=== PATIENT | female | born 1945 | race Caucasian/White ===

== ENCOUNTER 2020-07-21 11:27 | Outpatient (REF) | payer MEDICARE, MEDICAID, SELFPAY ==
--- NOTE | 2020-07-22 08:25 | MHC.AU.P13 ---
Adult Audiological Evaluation Date of Visit: 07/21/20 Anodiser Used: Reason for Appointment: Audiologic evaluation due to increasing difficulties hearing and understanding speech. Does patient feel they have a hearing loss?: Yes If Yes, Which Ear?: Both Ears Has hearing been tested previously?: No Hearing Handicap Inventory HHIE SCORE: 20 Based on HHIE score, patient has: Mild to moderate perceived hearing handicap Ear History: History of occupational noise exposure?: Yes Medical History: Medical History: Cancer Diabetes High Blood Pressure Moderate Dementia Otoscopy: Right Ear: Unremarkable Left Ear: Unremarkable Tympanometry: Right Ear: Normal Middle Ear System (Type A) Left Ear: Normal Middle Ear System (Type A) Otoacoustic Emissions: Frequency Range Used: 1.6-8 kHz Right Ear Results: Absent Emissions Analysis: Reduced/Absent emissions suggest cochlear dysfunction Left Ear Results: Absent Emissions Analysis: Reduced/Absent emissions suggest cochlear dysfunction Hearing Evaluation: Transducer(s) Used: Insert Earphones Bone Conduction Method: Conventional Audiometry Stimuli Used: Pure Tones Right Ear: Description of Hearing: Borderline normal hearing thresholds from 250-1000 Hz, sloping to a moderately-severe sensorineural hearing loss Left Ear: Description of Hearing: Mild sloping to moderately-severe sensorineural hearing loss Speech Recognition Threshold (SRT): Method Used: Monitored Live Voice Stimuli Used: Spondee Words Right Ear: 30 Left Ear: 30 Word Discrimination: Method: Monitored Live Voice Word Lists Used: Lista Bisil?bica (Croatian) Right Ear: 92% at a listening level of 70 dB HL Left Ear: 96% at a listening level of 70 dB HL Recommendations: Recommendations: Audiological re-evaluation in one year. Trial with amplification is recommended. Medical clearance from a physician is required before fitting. Hearing Aid Fitting will be scheduled when all materials arrive. Hearing aid(s) will be ordered after approval is received. Diagnosis: Primary Diagnosis: H90.3 Bilateral Sensorineural Hearing Loss Services Performed: Services Performed: Comprehensive Audiological Evaluation (CPT 15693) Diagnostic Otoacoustic Emissions (CPT 11444, 26+TC) Tympanometry (CPT 85090) Signature: Provider: Santos Fuentes, [facility]
--- NOTE | 2020-07-22 08:42 | MHC.AU.P13 ---
Hearing Aid Evaluation- Binaural Date of Visit: 07/21/20 Description of Hearing: Borderline normal/mild low frequency, sloping to moderately-severe high frequency sensorineural hearing loss bilaterally Summary: Discussed with grandson options and pros/cons between using a Pocket Talker vs. binaural hearing aids related to patient's dementia. Grandson feels patient will keep the hearing aids in the ears and there is constant family support, so hearing aids will be trialed Hearing Instrument Selection: Right Ear: Alto Singer: Phonak Model: Virto M [id number] in-the-ear Battery Size: 312 Color: Berg Left Ear: Alto Singer: Phonak Model: Virto M [id number] in-the-ear Battery Size: 312 Color: Berg Recommendations: Recommendations: Fitting will be scheduled when all materials have arrived. Prior authorization will be sent to patient's insurance. A signed medical clearance form is required from a physician. Recommendations: Call family to schedule Hearing Aid Fitting when aids are received. Mirta-Daughter(needs Propulsion Generator Repairer) [phone] Dre - Grandson [phone] Diagnosis Code(s): Primary Diagnosis: H90.3 Bilateral Sensorineural Hearing Loss Services Performed: Hearing Aid Evaluation and Earmold: Hearing Aid Evaluation- Binaural Signature: Provider: Santos Fuentes, CCC-A
== END 2020-07-21 11:28 | disposition home or self-care (01) ==
LOC: HO.SH 11:27
PROVIDERS: PCP Family Medicine; Visit Provider Family Medicine
DX: H90.3 Sensorineural hearing loss, bilateral (principal)
CPT/HCPCS: 92557; 92567; 92588; 92591

== ENCOUNTER 2020-08-05 11:35 | Outpatient (REF) | payer MEDICARE, MEDICAID, SELFPAY ==
--- NOTE | 2020-08-05 11:39 | MM_ITS ---
EXAMINATION: MM SCREENING DIGITAL BREAST TOMOSYNTHESIS, BILATERAL CLINICAL INFORMATION: Screening. Asymptomatic. COMPARISON: Mammography: October 18, 2018 and studies dating back to September 20, 2012 TECHNIQUE: Digital breast tomosynthesis is performed in both the craniocaudal and mediolateral oblique views along with computer-aided detection (CAD). Synthesized 2D images are generated from the tomosynthesis. Additional left exaggerated craniocaudal view performed. FINDINGS: There are scattered areas of fibroglandular density (ACR BI-RADS breast composition Category b). Stable postsurgical changes seen about the left breast. No new abnormal dominant mass or suspicious grouping of microcalcifications seen with either right or left breast. MM/MM tomosynthesis screening BI IMPRESSION: There are no significant changes from prior study. ASSESSMENT: BI-RADS 2: Benign RECOMMENDATION: Routine annual mammography screening. This patient's information was entered into a reminder system with a target due date for their next mammogram.
== END 2020-08-05 11:36 | disposition home or self-care (01) ==
LOC: HO.MAMMO 11:35
PROVIDERS: PCP Family Medicine; Visit Provider Family Medicine
DX: Z12.31 Encounter for screening mammogram for malignant neoplasm of breast (principal)
CPT/HCPCS: 77063; 77067

== ENCOUNTER 2020-11-03 10:10 | Outpatient (REF) | payer MEDICARE, MEDICAID, SELFPAY | END 2020-11-03 10:11 | disposition home or self-care (01) | LOC: HO.HAP 10:10 | PROVIDERS: Visit Provider Family Medicine | DX: Z46.1 Encounter for fitting and adjustment of hearing aid (principal); H90.3 Sensorineural hearing loss, bilateral | CPT/HCPCS: 92595; V5011; V5020; V5160; V5259; V5266 ==

== ENCOUNTER 2020-11-18 07:52 | Outpatient (REF) | payer MEDICARE, MEDICAID, SELFPAY ==
--- NOTE | ~2020-11-18 | XR_ITS ---
EXAMINATION: XR BILATERAL KNEES XR RIGHT KNEE CLINICAL INFORMATION: Pain. COMPARISON: None. TECHNIQUE: Bilateral knees 1 view. Right knee 3 views. FINDINGS: Right knee: Moderate medial compartment arthritis. There is joint space loss. Yrxm-mb-deqfzpml lateral compartment and mild patellofemoral arthritis. No fracture or dislocation. No effusion. Left knee: Ahsi-on-qrijziuj medial compartment arthritis. XR/XR knee RT 2V IMPRESSION: Tricompartment arthritis right knee. Moderate medial compartment arthritis.
--- NOTE | ~2020-11-18 | XR_ITS ---
EXAMINATION: XR BILATERAL KNEES XR RIGHT KNEE CLINICAL INFORMATION: Pain. COMPARISON: None. TECHNIQUE: Bilateral knees 1 view. Right knee 3 views. FINDINGS: Right knee: Moderate medial compartment arthritis. There is joint space loss. Gdtw-wj-eyoyppry lateral compartment and mild patellofemoral arthritis. No fracture or dislocation. No effusion. Left knee: Pwtz-sw-mbzledtx medial compartment arthritis. XR/XR knee standing BI IMPRESSION: Tricompartment arthritis right knee. Moderate medial compartment arthritis.
== END 2020-11-18 07:53 | disposition home or self-care (01) ==
LOC: HO.HOSX 07:52
PROVIDERS: Visit Provider Orthopaedic Surgery
DX: M25.561 Pain in right knee (principal)
CPT/HCPCS: 73560; 73565; J1100

== ENCOUNTER 2020-11-18 10:10 | Outpatient (REF) | payer MEDICARE, MEDICAID, SELFPAY | END 2020-11-18 10:11 | disposition home or self-care (01) | LOC: HO.HAP 10:10 | PROVIDERS: Visit Provider Family Medicine | DX: Z46.1 Encounter for fitting and adjustment of hearing aid (principal); M17.0 Bilateral primary osteoarthritis of knee; E11.65 Type 2 diabetes mellitus with hyperglycemia; H90.3 Sensorineural hearing loss, bilateral | CPT/HCPCS: 20610; 99202 ==

== ENCOUNTER 2020-12-06 12:46 | Outpatient (REF) | payer MEDICARE, MEDICAID, SELFPAY | END 2020-12-06 12:47 | disposition home or self-care (01) | LOC: HO.HAP 12:46 | PROVIDERS: Visit Provider Family Medicine | DX: Z13.89 Encounter for screening for other disorder (principal) ==

== ENCOUNTER 2023-04-09 19:49 | Emergency (ER) | payer MEDICARE, SELFPAY ==
--- NOTE | 2023-04-09 | ECG_ITS ---
Test Reason : WEAKNESS Blood Pressure : / mmHG Vent. Rate : 074 BPM Atrial Rate : 074 BPM P-R Int : 152 ms QRS Dur : 092 ms QT Int : 406 ms P-R-T Axes : 052 -09 054 degrees QTc Int : 450 ms Normal sinus rhythm Normal ECG When compared with ECG of 02-AUG-2019 18:14, No significant change was found Referred By: Magi Yuen Electronically Signed By:Randall Wright
--- NOTE | ~2023-04-09 | CT_ITS ---
EXAMINATION: CT HEAD WITHOUT CONTRAST CLINICAL INFORMATION: Sudden onset weakness and altered mental status. COMPARISON: CT brain dated 08/02/2019. TECHNIQUE: Contiguous axial imaging was performed from the skull base to vertex without intravenous administration of contrast. This CT examination was performed using dose optimization techniques as appropriate, variously including the following: *Automated exposure control *Adjustment of mA and/or kV according to patient size (this includes techniques or standardized protocols for targeted exams where dose is matched to indication/reason for exam; i.e. extremities or head) *Use of iterative reconstruction technique DLP: 651 mGy-cm FINDINGS: There is no intracranial hemorrhage, hematoma, or extra-axial fluid collection. The ventricles are normal in size. There is no hydrocephalus, edema, or mass effect. The canales-white matter differentiation appears symmetric. There is no acute infarct or mass lesion. There is minimal patchy low attenuation change in the periventricular white matter spaces. The calvarium appears intact. There is no pneumocephalus or orbital emphysema. The visualized sinuses and middle ears and mastoid air cells are well aerated. There is mild bilateral maxillary and sphenoid chamber sinusitis. There are no air-fluid levels. CT/CT head/brain wo IV con IMPRESSION: 1. No acute intracranial pathology. 2. There is minimal patchy low attenuation change in appearance to white matter spaces, commonly associated with chronic microangiopathy. 3. There is mild paranasal sinusitis.
--- NOTE | ~2023-04-09 | XR_ITS ---
EXAMINATION: XR CHEST CLINICAL INFORMATION: Weakness. COMPARISON: None available. TECHNIQUE: Frontal view of the chest was obtained. FINDINGS: The lungs are well-expanded and clear. The heart size and pulmonary vascularity is normal. There are surgical trista in the left lateral chest wall and overlying left supraclavicular and suprasternal region. No gross bony abnormality seen. XR/XR chest 1V IMPRESSION: Unremarkable chest exam.
[2023-04-09 20:00] VITALS: BP 120/62; BP 156/76; PULSE 74; PULSE 76; RESP 16; TEMP 37.2; O2SAT 93; O2SAT 97; BMI 23.8
[2023-04-09 20:25] LABS: Glucose, Whole Blood 254 mg/dL (60-115)
--- NOTE | 2023-04-09 20:37 | ED_ITS ---
HPI - Weakness General Chief complaint: Weakness Stated complaint: general weakness, per ems Time Seen by Provider: 04/09/23 19:55 Source: family Mode of arrival: ambulatory Limitations: language barrier (Serbian-speaking medical data entry clerk utilized) History of Present Illness HPI Narrative: Patient is a 78-year-old female who presents emergency department with daughter via EMS for evaluation. Patient with altered mental status at baseline secondary to Alzheimer's. Minimally conversive per daughter's report. She has recently moved here from [place] on 03/30/2023. Patient's daughter reports that she was sitting in a chair when she noticed the patient's base to become flushed/red. She assisted the patient to walk to the bathroom, she ambulates with assistance at baseline, she walks slowly. Patient took her medications as normal from daughter. Reportedly patient stated ?I do not feel well? and th erefore daughter contacted EMS for transport to the emergency department. Daughter reports that she has otherwise been at normal mentation prior. And does not expressed any recent concerns. Related Data Home Medications Medication Instructions Recorded Confirmed acetaminophen 500 mg tablet 500 mg PO Q6H PRN pain 11/18/20 aspirin 81 mg tablet,delayed 81 mg PO DAILY 11/18/20 release atorvastatin 80 mg tablet 80 mg PO DAILY 11/18/20 bupropion HCl 75 mg tablet 75 mg PO DAILY 11/18/20 cholecalciferol (vitamin D3) 25 25 mcg PO DAILY 11/18/20 mcg (1,000 unit) capsule fluoxetine 40 mg capsule mg PO 11/18/20 gabapentin 300 mg capsule 600 mg PO BEDTIME 11/18/20 memantine 10 mg tablet 10 mg PO BID 11/18/20 memantine 5 mg tablet 5 mg PO BID 11/18/20 metformin 500 mg tablet 500 mg PO BID 11/18/20 quetiapine 25 mg tablet mg PO 11/18/20 vit C 250 mg-vit E 90 mg-zinc 40 1 cap PO BID 11/18/20 mg-copper 1 vs-xjrmat-gwecme capsule vitamins A,C,O-anju-vwzobw 4,296 1 cap PO BID 11/18/20 mcg-226 mg-90 mg capsule (PreserVision AREDS) Allergies Allergy/AdvReac Type Severity Reaction Status Date / Time No Known Allergies Allergy Verified 11/18/20 12:40 Review of Systems Review of Systems: Yes Unobtainable due to mental status [facility] Past Medical History Attestation statement: The following information was validated with the patient. Source: old records reviewed Medical History Depression Diabetes type 2, uncontrolled DJD (degenerative joint disease) Dyslipidemia GERD (gastroesophageal reflux disease) Hypertension Osteoporosis Tubular adenoma Surgical History History of breast surgery Hx of thyroidectomy Family History Family History (Updated 12/23/20 @ 15:00 by Kriss Vargas [facility]) Father Kidney disease Social History Social History (Updated 11/18/20 @ 12:45 by Elba Hayes [facility]) Alcohol intake: never Advance Directives: No Advance Directives Information Provided: Yes Physical Exam Vital Signs: Vital Signs: Last Vital Signs Temp 98.9 F 04/09/23 20:00 Pulse 74 04/09/23 20:00 Resp 16 04/09/23 20:00 BP 156/76 H 04/09/23 20:00 Pulse Ox 97 04/09/23 20:00 O2 Del Method Room Air 04/09/23 20:00 BMI result Body Mass Index 23.8 Appearance: Alert.. No acute distress.? Eyes: Pupils equal, round and reactive to light.? ENT: Pharynx normal.?? Neck: Normal inspection.? Neck supple.?? CVS: Heart sounds normal. Normal heart rate and rhythm.? Pulses normal.?? Respiratory: No respiratory distress.? Lung sounds clear to auscultation bilaterally?? Abdomen: Soft and non-tender. Normoactive bowel sounds. No pulsatile mass.?? Skin: Skin warm and dry.? Normal skin color.? Extremities: No lower extremity edema.? Neuro: Moves all extremities spontaneously. No focal neuro deficits. Course Reevaluation(s) Reevaluation #1: CBC reveals no leukocytosis, a normocytic anemia not meeting any transfusion criteria. CMP is overall unremarkable, elevated glucose and a diabetic. Tropon in 13.7, EKG revealing normal sinus rhythm without acute ischemic finding, unlikely ACS. Chest x-ray is without acute cardiopulmonary process. CT of the head is without acute intracranial process. Pending urinalysis at this time, nursing staff made aware. Time: 23:06 Reevaluation #2: Urinalysis is without evidence of infection. I reviewed all findings with patient's daughter. At this time patient's daughter reports that she is at her baseline, she was offered physician observation in the emergency department tonight in case management/physical therapy evaluation in the morning for generalized weakness, daughter however declines. At this time she is comfortable with plan for discharge home. Reviewed worrisome signs and symptoms that would warrant re-evaluation in the emergency department. All questions answered. Time: 01:35 Medical Decision Making Medical Decision Making [facility] Narrative: Patient is a 78-year-old female with past medical history of Alzheimer's, diabetes, hypertension, hyperlipidemia, osteoporosis, depression, CKD stage IIIB, mitral regurgitation, tricuspid regurgitation presenting to the emergency department with daughter for evaluation of generalized weakness/unwell feeling as per HPI. Patient has baseline altered mental status secondary to Alzheimer's unable to obtain any significant history or appropriate ROS from patient. Physical examination is overall benign. Will obtain CBC to evaluate for leukocytosis/ anemia, CMP and lipase to evaluate for abnormal electrolytes /abnormal renal function/ abnormal hepatic/biliary function, EKG and troponin to evaluate for ischemia/ACS. Chest x-ray to evaluate for consolidation/ infiltrate/ mass/ pulmonary congestion and Urinalysis. Lab Data [facility] Lab Attestation statement: I reviewed the patient's lab results. (As per course narrative) 04/09/23 21:25 04/09/23 21:25 Labs: Lab Results 04/09/23 04/09/23 04/09/23 Range/Units 20:14 21:25 21:25 WBC 10.0 (4.8-10.8) X10*3/uL RBC 3.73 L (4.20-5.50) X10*6/uL Hgb 11.2 L (12.0-16.0) g/dl Hct 33.8 L (37.0-47.0) % MCV 90.6 (80.0-98.0) fL MCH 30.0 (27.0-33.0) pg MCHC 33.1 (31.0-35.0) g/dl RDW 13.2 (11.0-16.0) % Plt Count 200 (160-400) X10*3/uL MPV 9.7 (9.4-12.3) fL Immature Gran % (Auto) 0.3 (0.0-0.4) % Neut % (Auto) 52.4 (45-73) % Lymph % (Auto) 33.4 (20-40) % Harrison % (Auto) 6.6 (2-11) % Eos % (Auto) 6.7 H (0-4) % Baso % (Auto) 0.6 (0-2) % Lymph # (Auto) 3.3 (1.2-4.9) X10*3/uL Harrison # (Auto) 0.7 (0.1-1.2) X10*3/uL Eos # (Auto) 0.7 H (0.0-0.4) X10*3/uL Baso # (Auto) 0.1 (0.0-0.2) X10*3/uL Abs Immat Gran (auto) 0.03 (0.00-0.03) X10*3/uL Absolute Neuts (auto) 5.2 (2.0-8.3) x10*3/uL Absolute Nucleated RBC 0.000 (0.0-0.012) X10*3/uL Nucleated RBC % (auto) 0.0 (0.0-0.2) /100WBC PT (10.0-13.1) SEC INR (0.9-1.1) Sodium 140 (135-145) mmol/L Potassium 3.7 (3.3-5.1) mmol/L Chloride 107 (96-108) mmol/L Carbon Dioxide 25 (22-29) mmol/L Anion Gap 12 (12-20) BUN 16 (9-16) mg/dL Creatinine 0.99 (0.5-1.4) mg/dL Estim Creat Clear Calc 37.6 Estimated GFR 54 POC Glucose 254 H (60-115) mg/dL Random Glucose 190 H (60-115) mg/dL Calcium 9.0 (8.4-10.2) mg/dL Magnesium (1.6-2.6) mg/dL Total Bilirubin 0.3 (0.0-1.0) mg/dL AST 28 (5-31) U/L ALT 35 H (0-31) U/L Alkaline Phosphatase 69 (39-117) U/L Troponin I High Sens (<3.5-17.0) ng/L B-Natriuretic Peptide (<100) pg/mL Total Protein 6.3 L (6.5-8.0) g/dL Albumin 3.3 L (3.5-5.0) g/dL Lipase (8-78) U/L Urine Color Urine Appearance Urine pH (5.0-9.0) Ur Specific [place] (1.005-1.025) Urine Protein (Neg-Trace) mg/dL Urine Glucose (UA) (Negative) mg/dL Urine Ketones (Negative) mg/dL Urine Blood (Negative) Urine Nitrite (Negative) Ur Leukocyte Esterase (Negative) COVID-19 ([facility]) (Negative) COVID-19 Clin Com 04/09/23 04/09/23 04/09/23 Range/Units 21:25 21:25 21:25 WBC (4.8-10.8) X10*3/uL RBC (4.20-5.50) X10*6/uL Hgb (12.0-16.0) g/dl Hct (37.0-47.0) % MCV (80.0-98.0) fL MCH (27.0-33.0) pg MCHC (31.0-35.0) g/dl RDW (11.0-16.0) % Plt Count (160-400) X10*3/uL MPV (9.4-12.3) fL Immature Gran % (Auto) (0.0-0.4) % Neut % (Auto) (45-73) % Lymph % (Auto) (20-40) % Harrison % (Auto) (2-11) % Eos % (Auto) (0-4) % Baso % (Auto) (0-2) % Lymph # (Auto) (1.2-4.9) X10*3/uL Harrison # (Auto) (0.1-1.2) X10*3/uL Eos # (Auto) (0.0-0.4) X10*3/uL Baso # (Auto) (0.0-0.2) X10*3/uL Abs Immat Gran (auto) (0.00-0.03) X10*3/uL Absolute Neuts (auto) (2.0-8.3) x10*3/uL Absolute Nucleated RBC (0.0-0.012) X10*3/uL Nucleated RBC % (auto) (0.0-0.2) /100WBC PT (10.0-13.1) SEC INR (0.9-1.1) Sodium (135-145) mmol/L Potassium (3.3-5.1) mmol/L Chloride (96-108) mmol/L Carbon Dioxide (22-29) mmol/L Anion Gap (12-20) BUN (9-16) mg/dL Creatinine (0.5-1.4) mg/dL Estim Creat Clear Calc Estimated GFR POC Glucose (60-115) mg/dL Random Glucose (60-115) mg/dL Calcium (8.4-10.2) mg/dL Magnesium (1.6-2.6) mg/dL Total Bilirubin (0.0-1.0) mg/dL AST (5-31) U/L ALT (0-31) U/L Alkaline Phosphatase (39-117) U/L Troponin I High Sens 13.7 (<3.5-17.0) ng/L B-Natriuretic Peptide 40 (<100) pg/mL Total Protein (6.5-8.0) g/dL Albumin (3.5-5.0) g/dL Lipase (8-78) U/L Urine Color Urine Appearance Urine pH (5.0-9.0) Ur Specific [place] (1.005-1.025) Urine Protein (Neg-Trace) mg/dL Urine Glucose (UA) (Negative) mg/dL Urine Ketones (Negative) mg/dL Urine Blood (Negative) Urine Nitrite (Negative) Ur Leukocyte Esterase (Negative) COVID-19 ([facility]) Negative (Negative) COVID-19 Clin Com See Note 04/09/23 04/09/23 04/10/23 Range/Units 21:25 21:26 01:20 WBC (4.8-10.8) X10*3/uL RBC (4.20-5.50) X10*6/uL Hgb (12.0-16.0) g/dl Hct (37.0-47.0) % MCV (80.0-98.0) fL MCH (27.0-33.0) pg MCHC (31.0-35.0) g/dl RDW (11.0-16.0) % Plt Count (160-400) X10*3/uL MPV (9.4-12.3) fL Immature Gran % (Auto) (0.0-0.4) % Neut % (Auto) (45-73) % Lymph % (Auto) (20-40) % Harrison % (Auto) (2-11) % Eos % (Auto) (0-4) % Baso % (Auto) (0-2) % Lymph # (Auto) (1.2-4.9) X10*3/uL Harrison # (Auto) (0.1-1.2) X10*3/uL Eos # (Auto) (0.0-0.4) X10*3/uL Baso # (Auto) (0.0-0.2) X10*3/uL Abs Immat Gran (auto) (0.00-0.03) X10*3/uL Absolute Neuts (auto) (2.0-8.3) x10*3/uL Absolute Nucleated RBC (0.0-0.012) X10*3/uL Nucleated RBC % (auto) (0.0-0.2) /100WBC PT 10.7 (10.0-13.1) SEC INR 0.9 (0.9-1.1) Sodium (135-145) mmol/L Potassium (3.3-5.1) mmol/L Chloride (96-108) mmol/L Carbon Dioxide (22-29) mmol/L Anion Gap (12-20) BUN (9-16) mg/dL Creatinine (0.5-1.4) mg/dL Estim Creat Clear Calc Estimated GFR POC Glucose (60-115) mg/dL Random Glucose (60-115) mg/dL Calcium (8.4-10.2) mg/dL Magnesium 1.9 (1.6-2.6) mg/dL Total Bilirubin (0.0-1.0) mg/dL AST (5-31) U/L ALT (0-31) U/L Alkaline Phosphatase (39-117) U/L Troponin I High Sens (<3.5-17.0) ng/L B-Natriuretic Peptide (<100) pg/mL Total Protein (6.5-8.0) g/dL Albumin (3.5-5.0) g/dL Lipase 23 (8-78) U/L Urine Color Yellow Urine Appearance Clear Urine pH 6.5 (5.0-9.0) Ur Specific [place] <= 1.005 (1.005-1.025) Urine Protein Negative (Neg-Trace) mg/dL Urine Glucose (UA) Negative (Negative) mg/dL Urine Ketones Negative (Negative) mg/dL Urine Blood Negative (Negative) Urine Nitrite Negative (Negative) Ur Leukocyte Esterase Negative (Negative) COVID-19 ([facility]) (Negative) COVID-19 Clin Com Independent Interpretation I performed an independent interpretation of an: EKG and Plain X-Ray (Have personally interpreted XR imaging and agree with radiologist impression, no pneumonia, pneumothorax, pulmonary congestion) Interpretation: Rate: 73 Rhythm:? Normal sinus rhythm [place]:? Normal Normal P waves.? Normal ULYSSES.?? Normal QRS complex.?? ST T wave :??No ST elevation, no ST depression, no T-wave inversion qTC: 450 prior studies:? July 2019 The study has been interpreted contemporaneously by me. Radiology Impression Discussion of test interpretation with radiology: I have reviewed the radiolog ist's reading. Radiologist Impression: XR/XR chest 1V IMPRESSION: Unremarkable chest exam CT/CT head/brain wo IV con IMPRESSION: ? 1. No acute intracranial pathology. ? 2. There is minimal patchy low attenuation change in appearance to white matter spaces, commonly associated with chronic microangiopathy. ? 3. There is mild paranasal sinusitis. Independent Historian Clinical information obtained from an independent historian. History obtained from or confirmed by: Other (Patient's daughter who provides history) Discharge Plan Discharge Clinical Impression: Weakness Patient Disposition: Home, Self-Care Instructions: Weakness (ED) Additional Instructions: You were offered to remain in the emergency department so that physical therapy evaluation could be obtained in the morning. However this service was declined. If you have any concerns about continued weakness, falls while at home you may return back to the emergency department for further evaluation. Please return back to the emergency department any new or worsening symptoms or concerns. Referrals: Physician,Unknown J [Primary Care Provider] - Print Language: Serbian
[2023-04-09 21:30] LABS: MANUAL DIFF FLAG NO
[2023-04-09 21:33] LABS: Basophils Absolute Auto 0.1 X10*3/uL (0.0-0.2); Basophils Percent Auto 0.6 % (0-2); Eosinophils Absolute Auto 0.7 X10*3/uL (0.0-0.4); Eosinophils Percent Auto 6.7 % (0-4); Hematocrit 33.8 % (37.0-47.0); Hemoglobin 11.2 g/dl (12.0-16.0); Imm Gran Abs Auto 0.03 X10*3/uL (0.00-0.03); Imm Gran Pct Auto 0.3 % (0.0-0.4); Lymphocytes Absolute Auto 3.3 X10*3/uL (1.2-4.9); Lymphocytes Percent Auto 33.4 % (20-40); Mean Corpuscular HGB Conc 33.1 g/dl (31.0-35.0); Mean Corpuscular Volume 90.6 fL (80.0-98.0); Mean Platelet Volume 9.7 fL (9.4-12.3); Monocytes Absolute Auto 0.7 X10*3/uL (0.1-1.2); Monocytes Percent Auto 6.6 % (2-11); Neutrophils Absolute Auto 5.2 x10*3/uL (2.0-8.3); Neutrophils Percent Auto 52.4 % (45-73); Platelet Count 200 X10*3/uL (160-400); Red Blood Count 3.73 X10*6/uL (4.20-5.50); Red Cell Distribution Width 13.2 % (11.0-16.0)
[2023-04-09 21:40] LABS: INTERNATIONAL NORM RATIO 0.9 (0.9-1.1); Prothrombin Time 10.7 SEC (10.0-13.1)
[2023-04-09 21:44] LABS: COVID-19 Test Negative (Negative); IDNOW Serial# 08D9AD1C
[2023-04-09 21:45] LABS: Lipase 23 U/L (8-78); Magnesium 1.9 mg/dL (1.6-2.6)
[2023-04-09 21:47] LABS: Alanine Aminotransferase 35 U/L (0-31); Albumin Level 3.3 g/dL (3.5-5.0); Alkaline Phosphatase 69 U/L (39-117); Anion Gap 12 (12-20); Aspartate Amino Transferase 28 U/L (5-31); Bilirubin Total 0.3 mg/dL (0.0-1.0); Blood Urea Nitrogen 16 mg/dL (9-16); Carbon Dioxide 25 mmol/L (22-29); Chloride 107 mmol/L (96-108); Creatinine Clr Calc Pharmacy 37.6; Estimated Glomerular Filt Rate 54; Glucose Random 190 mg/dL (60-115); Potassium 3.7 mmol/L (3.3-5.1); Sodium 140 mmol/L (135-145); Total Protein 6.3 g/dL (6.5-8.0)
[2023-04-09 21:53] LABS: Troponin-I High Sensitivity 13.7 ng/L (<3.5-17.0)
[2023-04-09 21:55] LABS: B Type Natriuretic Peptide 40 pg/mL (<100)
[2023-04-10 01:28] LABS: Appearance Urine Clear; Color Urine Yellow; Glucose Urine UA Negative (Negative); Leukocyte Esterase Urine Negative (Negative); Nitrite Urine Negative (Negative); PH 6.5 (5.0-9.0); Specific Gravity - Urine <= 1.005 (1.005-1.025); Urine Blood Negative (Negative); Urine Ketones Negative (Negative); Urine Protein Negative (Neg-Trace)
--- NOTE | 2023-04-10 02:18 | PC.NURSE ---
pt oob with 2 assist to the wheelchair, no pain observed
== END 2023-04-10 02:19 | disposition home or self-care (01) ==
PROVIDERS: Nurse Practitioner Family; Emergency Provider Student in an Organized Health Care Education/Training Program
DX: R53.1 Weakness (principal); Z20.822 Contact with and (suspected) exposure to COVID-19; E11.22 Type 2 diabetes mellitus with diabetic chronic kidney disease; I12.9 Hypertensive chronic kidney disease with stage 1 through stage 4 chronic kidney disease, or unspecified chronic kidney disease; N18.32 Chronic kidney disease, stage 3b; D64.9 Anemia, unspecified; G30.9 Alzheimer's disease, unspecified; F02.80 Dementia in other diseases classified elsewhere, unspecified severity, without behavioral disturbance, psychotic disturbance, mood disturbance, and anxiety; E78.5 Hyperlipidemia, unspecified; Z79.899 Other long term (current) drug therapy; Z79.82 Long term (current) use of aspirin; Z79.84 Long term (current) use of oral hypoglycemic drugs
CPT/HCPCS: 36415; 51798; 70450; 71045; 80053; 81003; 82947; 83690; 83735; 83880; 84484; 85025; 85610; 87635; 93005; 99284; 99285

== ENCOUNTER → 2023-04-09 19:59 | Outpatient (BNV) | payer MEDICARE, SELFPAY | PROVIDERS: Emergency Provider Student in an Organized Health Care Education/Training Program; Visit Provider Internal Medicine Cardiovascular Disease | DX: R53.1 Weakness (principal) | CPT/HCPCS: 93010 ==

== ENCOUNTER 2023-06-11 10:17 | Outpatient (REF) | payer MEDICARE, MEDICAID, SELFPAY ==
[2023-06-11 12:47] LABS: Creatinine Urine 173.32 mg/dL; Microalbum/Creatinine Ratio Ur 32.8 ug/mg cr (<30)
[2023-06-11 13:35] LABS: Alanine Aminotransferase 36 U/L (0-31); Albumin Level 3.7 g/dL (3.5-5.0); Alkaline Phosphatase 79 U/L (39-117); Anion Gap 13 (12-20); Aspartate Amino Transferase 25 U/L (5-31); Bilirubin Direct 0.2 mg/dL (0.0-0.5); Bilirubin Total 0.5 mg/dL (0.0-1.0); Blood Urea Nitrogen 16 mg/dL (9-16); Calcium 9.7 mg/dL (8.4-10.2); Carbon Dioxide 23 mmol/L (22-29); Chloride 105 mmol/L (96-108); Cholesterol 163 mg/dL (<200); Estimated Glomerular Filt Rate 35; Glucose Random 362 mg/dL (60-115); HDL Cholesterol 58 mg/dL (>40); LDL Cholesterol Calculated 79 mg/dL (<100); Potassium 4.4 mmol/L (3.3-5.1); Sodium 137 mmol/L (135-145); Total Protein 7.1 g/dL (6.5-8.0); Triglycerides 133 mg/dL (<150)
[2023-06-12 05:14] LABS: HIV AB/AG Nonreactive (Nonreactive); HIV Num 1 0.06 S/CO (0.00-0.99); ~HepC Num1 0.07 S/CO (0.00-0.79); ~Hepatitis C Antibody Nonreactive (Nonreactive)
[2023-06-16 11:52] LABS: VITAMIN D (1,25 OH) D3 26 pg/mL; Vit D (1,25-Dihydroxy) Total 26 pg/mL (18-72); Vitamin D (1,25 OH) D2 <8 pg/mL
== END 2023-06-11 10:18 | disposition home or self-care (01) ==
LOC: HO.HHCL 10:17
PROVIDERS: Visit Provider Family Medicine
DX: Z11.4 Encounter for screening for human immunodeficiency virus [HIV] (principal); Z11.59 Encounter for screening for other viral diseases; E11.29 Type 2 diabetes mellitus with other diabetic kidney complication; R80.9 Proteinuria, unspecified; E78.5 Hyperlipidemia, unspecified; I10 Essential (primary) hypertension; E55.9 Vitamin D deficiency, unspecified; Z79.4 Long term (current) use of insulin
CPT/HCPCS: 36415; 80048; 80061; 80076; 82043; 82570; 82652; 86803; 87389

== ENCOUNTER 2023-09-13 17:40 | Outpatient (REF) | payer MEDICARE, SELFPAY ==
[2023-09-14 21:18] LABS: C. trachomatis RNA TMA NOT DETECTED (NOT DETECTED); Candida glabrata RNA NOT DETECTED (NOT DETECTED); Candida species RNA DETECTED (NOT DETECTED); N. gonorrhoeae RNA TMA NOT DETECTED (NOT DETECTED); Trichomonas vaginalis RNA NOT DETECTED (NOT DETECTED)
== END 2023-09-13 17:41 | disposition home or self-care (01) ==
LOC: HO.LNP 17:40
PROVIDERS: Visit Provider Family Medicine
DX: R39.9 Unspecified symptoms and signs involving the genitourinary system (principal); B37.31 Acute candidiasis of vulva and vagina
CPT/HCPCS: 81513; 87086; 87481; 87491; 87591; 87661

== ENCOUNTER 2023-12-19 10:43 | Outpatient (AMB) | payer MEDICARE, SELFPAY ==
--- NOTE | 2023-12-19 10:51 | A.OFFVIS_ITS ---
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 Intake Note: New patient dx palpitations Child Development Instructor Name: patient has davina daughter Architecture Consultant: Architecture Consultant Present Accompanied by: Daughter Allergies No Known Allergies Allergy (Verified 11/18/20 12:40) Medication List - Last Reconciled 12/19/23 by Sean Marrero MD acetaminophen 500 mg PO Q6H PRN atorvastatin 80 mg PO DAILY bupropion HCl 75 mg PO DAILY cholecalciferol (vitamin D3) 25 mcg PO DAILY fluoxetine mg PO gabapentin 600 mg PO BEDTIME lisinopril 2.5 mg PO DAILY memantine 10 mg PO BID memantine 5 mg PO BID metformin 500 mg PO BID quetiapine mg PO vit C,Y-Lm-lxzue-lutein-zeaxan 250-90-40-1 mg 1 cap PO BID vitamins A,C,S-wpve-ogcrfz 4,296 mcg-226 mg-90 mg (PreserVision AREDS) 1 cap PO BID HPI HPI Comments History of Present Illness Details Chantal was referred here for symptoms of palpitations. She presents here with 2 daughters. Patient has significantly advanced cognitive dysfunction dementia. Not able to offer much history her symptoms. They do not have any records from [place]. She had symptoms of palpitations in [place] although details of these are not available and as to the diagnosis. However she is on Cardizem therapy for the same. She was referred here for further evaluation of palpitation although I can not obtain any history from the patient and there is no obvious symptoms of palpitations. However as per 1 of the daughters when patient stands up she complains of lightheadedness and chest discomfort. She has not had any syncopal episodes. Usually they keep a 24 hour watch on the patient. There are no other clear symptoms of heart failure reported. No blood pressure records at home. [facility] Medical History GERD (gastroesophageal reflux disease) Diabetes type 2, uncontrolled Osteoporosis Depression Tubular adenoma DJD (degenerative joint disease) Dyslipidemia Hypertension Surgical History Hx of thyroidectomy History of breast surgery Family History Father Kidney disease Social History Alcohol intake: never Review of Systems Const Unobtainable due to mental status Denies chills, Denies daytime sleepiness, Denies fatigue, Denies fever(s), Denies frequent falls, Denies poor appetite, Denies snoring, Denies stops breathing during sleep, Denies weakness, Denies weight gain and Denies weight loss Eyes Denies loss of vision ENT Denies dizziness and Denies hearing loss Card Denies chest pain, Denies claudication, Denies leg edema, Denies lightheadedness, Denies palpitations, Denies dyspnea, Denies dyspnea on exertion and Denies orthopnea Resp Denies cough, Denies excessive phlegm production, Denies dyspnea, Denies dyspnea on exertion, Denies snoring and Denies wheezing GI Denies abdominal pain, Denies hematochezia, Denies change in bowel habits, Denies nausea and Denies vomiting Denies urinary frequency and Denies dysuria Musc Denies arthralgias, Denies muscle weakness, Denies numbness and Denies other (frequent falls) Skin/Breast Denies nail changes and Denies rash Neuro Denies Abnormal speech present, Reports confusion, Denies dizziness, Denies frequent falls, Denies loss of vision, Denies memory loss, Denies numbness and Denies weakness Psych Reports confusion, Denies depression and Denies memory loss Endo Denies fatigue and Denies palpitations Ezra/Lymph Reports easy bruising and Reports other (anemia) Aller/Immun Denies wheezing Physical Exam Vital Signs: Last Vital Signs Pulse 81 12/19/23 10:58 BP 110/70 12/19/23 10:58 BMI result Body Mass Index 24.2 Const General: cooperative, comfortable, alert, awake and confusion Nutritional Appearance: average body habitus Orientation/consciousness: confusion Limitations: no limitations HEENT Head: Yes normocephalic and Yes atraumatic Neck Neck: Yes trachea midline, Yes supple and Yes no JVD Resp Effort & Inspection: normal respiratory effort Auscultation: clear to auscultation bilaterally Cardio Jugular venous distension: no JVD Palpation: normal PMI Rate: regular rate Rhythm: regular rhythm Heart sounds: S1 normal heart sound present, S2 normal heart sound present, no click, no gallops, no murmurs and no rubs GI Auscultation: normal bowel sounds Skin General skin exam: no rashes or lesions noted Neuro General: no focal motor deficits and confusion Speech: No Abnormal speech present Extrem General: Yes no clubbing, cyanosis or edema Office Procedures EKG Details: EKG shows poor baseline otherwise normal sinus rhythm with poor R-wave progression most likely lead placement [id number], Complete Assessment & Plan Assessment & Plan (1) Lightheadedness: Code(s): R42 - Dizziness and giddiness Plan: Patient with symptoms of lightheadedness and orthostatic positions when she gets up suddenly. 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 We discussed about orthostatic hypotension low blood pressure symptoms associated with it and associated risk of especially passing out and falling and hurting the patient. This was discussed in details. At this point time a blood pressure shows mild orthostasis from supine to sitting position. I have advised to stop lisinopril therapy. Advised to increase fluid intake. Orthostatic precautions were discussed. Given her significant cognitive dysfunction, this may pose a challenge. This was discussed with both patient's daughters. Given her advanced cognitive dysfunction, no further workup is indicated at this point in time. This was discussed with them. She does have high risk for underlying cardiovascular disease especially coronary artery disease given her longstanding diabetes. However management would be conservative. Consider low-dose aspirin therapy. Will follow up in the clinic if need be. Thank you for allowing me to partake in her care Coding Level of Care Code New Pt Level 4 (29444) Diagnoses Lightheadedness R42 CPT Codes EKG - CPT: 30964-[id number], Complete ([id number])
[2023-12-19 10:58] VITALS: BP 110/70; PULSE 81; BMI 24.2
== END 2023-12-19 11:48 | disposition home or self-care (01) ==
PROVIDERS: PCP Family Medicine; Visit Provider Internal Medicine Cardiovascular Disease
DX: R42 Dizziness and giddiness (principal)
CPT/HCPCS: 93010; 99204

== ENCOUNTER → 2023-12-19 10:43 | Outpatient (BNVA) | payer MEDICARE, SELFPAY | PROVIDERS: PCP Family Medicine; Visit Provider Internal Medicine Cardiovascular Disease | DX: R00.2 Palpitations (principal); R42 Dizziness and giddiness; F03.90 Unspecified dementia, unspecified severity, without behavioral disturbance, psychotic disturbance, mood disturbance, and anxiety | CPT/HCPCS: 93005; 99202 ==

== ENCOUNTER 2024-05-19 09:16 | Outpatient (REF) | payer MEDICARE, SELFPAY ==
[2024-05-19 11:59] LABS: Appearance Urine Clear; Color Urine Yellow; Glucose Urine UA >=1000 mg/dL (Negative); Leukocyte Esterase Urine Negative (Negative); Nitrite Urine Negative (Negative); Specific Gravity - Urine 1.025 (1.005-1.025); UMIC TRIGGER UACC YES; Urine Blood Negative (Negative); Urine Ketones Negative (Negative); Urine Protein Negative (Neg-Trace)
[2024-05-19 12:04] LABS: Bacteria Urine None Seen (None Seen); Hyaline Casts Urine 0-2 /LPF (0-2); RBC Urine 0-2 /HPF (0-2); Squamous Epithelial Cell Urine 0-2 /HPF (0-2); WBC Urine 0-5 /HPF (0-5)
[2024-05-19 12:14] LABS: Estimated Average Glucose 151 mg/dL; Hemoglobin A1c % 6.9 % (<6.0)
[2024-05-19 12:18] LABS: Alanine Aminotransferase 22 U/L (0-31); Albumin Level 4.2 g/dL (3.5-5.0); Alkaline Phosphatase 83 U/L (39-117); Anion Gap 12 (12-20); Aspartate Amino Transferase 19 U/L (5-31); Bilirubin Direct 0.1 mg/dL (0.0-0.5); Bilirubin Total 0.3 mg/dL (0.0-1.0); Blood Urea Nitrogen 14 mg/dL (9-16); Calcium 9.7 mg/dL (8.4-10.2); Carbon Dioxide 24 mmol/L (22-29); Chloride 109 mmol/L (96-108); Cholesterol 286 mg/dL (<200); Estimated Glomerular Filt Rate 32; Glucose Random 102 mg/dL (60-115); HDL Cholesterol 51 mg/dL (>40); LDL Cholesterol Calculated 184 mg/dL (<100); Potassium 4.4 mmol/L (3.3-5.1); Sodium 141 mmol/L (135-145); Total Protein 7.9 g/dL (6.5-8.0); Triglycerides 257 mg/dL (<150)
[2024-05-19 12:23] LABS: Creatinine Urine 122.62 mg/dL; Microalbum/Creatinine Ratio Ur 20.3 ug/mg cr (<30)
== END 2024-05-19 09:17 | disposition home or self-care (01) ==
LOC: HO.HHCL 09:16
PROVIDERS: Family Medicine; Visit Provider Internal Medicine
DX: E11.65 Type 2 diabetes mellitus with hyperglycemia (principal); R35.0 Frequency of micturition
CPT/HCPCS: 36415; 80048; 80061; 80076; 81001; 81003; 82043; 82570; 83036; 87086

== ENCOUNTER 2025-02-10 08:49 | Outpatient (REF) | payer MEDICARE, SELFPAY ==
--- OUTSIDE RECORDS SUMMARY | 2025-02-10 09:07 | XMS_ITS | Encounter Summary ---
Author Organization [employer] Address [address] [facility] 7[address] [place] [address] Care Team Providers Care Composition Professor Name Role Phone Roxy Flood MD Primary Care Provider [phone]- [phone] Encounter Details Date Type Department Care Team (Late st Contact Info) Description 08/11/2024 Orders Only [facility] [address] [place] [address] Roxy Flood MD [address] [place] [address] Dementia without behavioral disturbance (CMS/HCC) (Primary Dx) Social History Tobacco Use Types Packs/Day Years Used Date Smoking Tobacco: Never Smokeless Tobacco: Never Alcohol Use Standard Drinks/Week Comments Defer 0 (1 standard drink = 0.6 oz pur e alcohol) Alcohol Answer Date Recorded Frequency of Alcohol Consumption Not on file 08/04/2024 Average Number of Drinks Not on file 024 Frequency of Binge Drinking Not on file 07/25 Score 0 08/04/2024 Depression Answer Date Recorded Patient Health Questionnaire-9 Score 3 05/21/2024 Patient Health Questionnaire-9 Score 3 05/21/2024 Last PHQ-9: Questionnaire Data Not on file 0 05/21/2024 Housing Stability Answer Date Recorded What is your housing situation today? I have rosalinda bond 07/24/[address] you li ve. Do you have problems with any of the following? None of the above 07/24/2024 Food Insecurity Answer Date Recorded Within the past 12 months, y ou worried that your food would run out before you got money to buy more: Never True 07/24/2024 Within the past 12 months,th e food you bought just didn't last and you didn't have enough money to get more: Never True Transportation Answer Date Recorded In the past 12 months, has l ack of transportation kept you from medical appts, meetings, work or from getting things needed for daily living? No 07/24/2024 Utilities Answer Date Recorded In the past 12 months, has t he electric, gas, oil or water company threatened to shut off services in your home? No 07/24/2024 Depression Answer Date Recorded Patient Health Questionnaire-2 Score 2 05/21/2024 Internet Access Answer Date Recorded Internet Access Q1 No 07/24/2024 Internet Access Q2 I do not want or need it 06/26 Comments Unknown Sex and Gender Information Value Date Recorded Sex Assigned at Female 07/24/2022 10:18 AM EDT Legal Sex Female 10:18 AM EDT Gender Identity Female 07/24/2022 10:18 AM EDT Sexual Orientation Straight 07/24/2022 10 :18 AM EDT documented as of this encounter Plan of Treatment Upcoming Encounters Date Type Department Care Team (Late st Contact Info) Description 03/16/2025 11:15 AM EDT Telemedicine [facility] [address] [place] [phone] Roxy Flood MD [address] [place] [address] documented as of this encounter Goals Goal Patient Goal Type Associated Problems Recent Progress Patient-Stated? Author Blood Pressure < 150/90 Blood Pressure 140/78(2023 11:37 AM EST) No Mickey Amaya Hemoglobin A1c < 8 Result Component 6.9( 9:26 AM EDT) No Mickey Amaya documented as of this encounter Visit Diagnoses Diagnosis Dementia without behavioral disturbance (CMS/HCC)- Primary documented in this encounter Additional Health Concerns Assessment Noted Time PHQ-9 Depression Total Score: 3 05/21/20 24 10:39 AM EDT documented as of this encounter Care Teams Composition Professor Relationship Specialty Start Date End Date [place], MD Roxy [address] [place] [id number] PCP - General Family Medicine 03/21/23 Cj Harp NP [facility] 10/07/24 [place] [address] 11/04/24 documented as of this encounter
--- OUTSIDE RECORDS SUMMARY | 2025-02-10 09:08 | XMS_ITS | Encounter Summary ---
Author Organization [employer] Address [address] [facility] 7t [place] [address] Care Team Providers Care Director Content Marketing Name Role Phone Davison, Roxy LUEVANO Primary Care Provider [phone]- [phone] Reason for Visit * Reason Comments Med Refill Encounter Details Date Type Department Care Team (Late st Contact Info) Description 10/16/[address] [facility] [address] [place] [address] Candi Otoole FNP [address] [place] [address] Alzheimer's dementia of other onset, unspecified dementia severity, unspecified whether behavioral, psychotic, or mood disturbance or anxiety (CMS/FORMERLY [facility]) Social History Tobacco Use Types Packs/Day Years Used Date Smoking Tobacco: Never Smokeless Tobacco: Never Depression Answer Date Recorded Patient Health Questionnaire-9 Score 11 06/11/2023 Housing Stability Answer Date Recorded What is your housing situation today? I am not s ure 07/11/[address] you li ve. Do you have problems with any of the following? None of the above 07/11/2023 Food Insecurity Answer Date Recorded Within the past 12 months, y ou worried that your food would run out before you got money to buy more: Never True 07/11/2023 Within the past 12 months,th e food you bought just didn't last and you didn't have enough money to get more: Never True Transportation Answer Date Recorded In the past 12 months, has l ack of transportation kept you from medical appts, meetings, work or from getting things needed for daily living? Yes, it has kept me from non-medical meetings, work, or getting things that I need 07/03/2023 Utilities Answer Date Recorded In the past 12 months, has t he electric, gas, oil or water company threatened to shut off services in your home? No 07/11/2023 Depression Answer Date Recorded Patient Health Questionnaire-2 Score 4 06/11/2023 Comments Unknown Sex and Gender Information Value Date Recorded Sex Assigned at Female 07/24/2022 10:18 AM EDT Legal Sex Female 10:18 AM EDT Gender Identity Female 07/24/2022 10:18 AM EDT Sexual Orientation Straight 07/24/2022 10 :18 AM EDT documented as of this encounter Plan of Treatment Upcoming Encounters Date Type Department Care Team (Late st Contact Info) Description 03/16/2025 11:[address] [facility] [address] [place] [phone] Roxy Flood MD [address] [place] [id number] documented as of this encounter Goals Goal Patient Goal Type Associated Problems Recent Progress Patient-Stated? Author Blood Pressure < 150/90 Blood Pressure 140/78(2023 11:37 AM EST) No Mickey Amaya Hemoglobin A1c < 8 Result Component 6.9( 9:26 AM EDT) No Mickey Amaya documented as of this encounter Visit Diagnoses Diagnosis Alzheimer's dementia of other onset, unspecified dementia severity, unspecified whether behavioral, psychotic, or mood disturbance or anxiety (CMS/FORMERLY [facility]) documented in this encounter Additional Health Concerns Assessment Noted Time PHQ-9 Depression Total Score: 11 023 9:42 AM EDT documented as of this encounter Care Teams Director Content Marketing Relationship Specialty Start Date End Date Roxy Flood MD [address] [place] [phone] PCP - General Family Medicine 03/21/23 Cj Harp NP [facility] 10/07/24 Magi Raymond, RN [facility] ([address] [address] 11/04/24 documented as of this encounter
--- OUTSIDE RECORDS SUMMARY | 2025-02-10 09:08 | XMS_ITS | Encounter Summary ---
Author Organization [employer] Address [address] [place] [address] 7t [place] [address] Care Team Providers Care Commercial Lending Assistant Name Role Phone Roxy Flood MD Primary Care Provider +1- [phone] Encounter Details Date Type Department Care Team (Late st Contact Info) Description 04/25/2023 Abstract [facility] [address] [place] [phone] Roxy Flood MD [address] [place] [address] [phone] Social History Tobacco Use Types Packs/Day Years Used Date Smoking Tobacco: Never Assessed Comments Unknown Sex and Gender Information Value Date Recorded Sex Assigned at Female 07/24/2022 10:18 AM EDT Legal Sex Female 10:18 AM EDT Gender Identity Female 07/24/2022 10:18 AM EDT Sexual Orientation Straight 07/24/2022 10 :18 AM EDT documented as of this encounter Plan of Treatment Upcoming Encounters Date Type Department Care Team (Late st Contact Info) Description 03/16/2025 11:15 AM EDT Telemedicine [facility] [address] [place] [phone] Roxy Flood MD [address] [place] [address] [phone] documented as of this encounter Visit Diagnoses Not on filedocumented in this encounter Care Teams Commercial Lending Assistant Relationship Specialty Start Date End Date Roxy Flood MD [address] [place] [address] PCP - General Family Medicine 03/21/23 Cj Harp NP [facility] 10/07/24 Magi Raymond, RN [facility] ([address] [address] 11/04/24 documented as of this encounter
--- OUTSIDE RECORDS SUMMARY | 2025-02-10 09:08 | XMS_ITS | Encounter Summary ---
Author Organization [email or web address] Address [address] [facility] 7t [place] [address] Care Team Providers Care Filling Machine Set Up Mechanic Name Role Phone Roxy Flood MD Primary Care Provider +1- [phone] Reason for Visit * Reason Comments Med Refill Encounter Details Date Type Department Care Team (Late st Contact Info) Description 12/22/2024 Refill [facility] [address] [place] [address] Roxy Flood MD [address] [place] [address] Gastroesophageal reflux disease, unspecified whether esophagitis present Social History Tobacco Use Types Packs/Day Years [...] Info) Description 03/16/2025 11:15 AM EDT Telemedicine [facility] [address] [place] [address] Roxy Flood MD [address] [place] [address] documented as of this encounter Goals Goal Patient Goal Type Associated Problems Recent Progress Patient-Stated? Author Blood Pressure < 150/90 Blood Pressure 140/78(2023 11:37 AM EST) No Mickey Amaya Hemoglobin A1c < 8 Result Component 6.9( 9:26 AM EDT) No Mickey Amaya documented as of this encounter Visit Diagnoses Diagnosis Gastroesophageal reflux disease, unspecified whether esophagitis present documented in this encounter Additional Health Concerns Assessment Noted Time PHQ-9 Depression Total Score: 3 05/21/20 24 10:39 AM EDT documented as of this encounter Care Teams Filling Machine Set Up Mechanic Relationship Specialty Start Date End Date Roxy Flood MD [address] [place] [address] PCP - General Family Medicine 03/21/23 Cj Harp NP [facility] 10/07/24 Magi Raymond RN [facility] Caregiver [address] [address] 11/04/24 documented as of this encounter
--- OUTSIDE RECORDS SUMMARY | 2025-02-10 09:08 | XMS_ITS | Clinical Summary ---
Author Organization [employer] Address [address] [place] [address] [address] [place] [address] Care Team Providers Care Fundraising Officer Name Role Phone Roxy Flood MD Primary Care Provider [phone] Allergies No known active allergies Medications insulin glargine (Lantus SoloStar) 100 UNIT/ML penIndications:Unc ontrolled type 2 diabetes mellitus with hyperglycemia ([facility]) Inject 22 Units under the skin at bedtime. 15 mL 01/30/20 24 Active Alcohol Swabs (Alcohol Pads) 70 % padsIndications:Un controlled type 2 diabetes mellitus with hyperglycemia (CMS/HCC) Use as directed on skin 100 each 11 01/30/20 24 Active pen needle 32G x 6 mm miscIndications:Ty pe 2 diabetes mellitus with microalbuminuria, with long-term current use of insulin ([facility]) Use as instructed 100 each 03/14/20 24 025 Active memantine (Namenda) 10 MG tabletIndications: Alzheimer's dementia of other onset, unspecified dementia severity, unspecified whether behavioral, psychotic, or mood disturbance or anxiety (CMS/HCC) Take 1 tablet (10 mg) by mouth 2 times daily. 60 tablet 03/31/20 24 025 Active clotrimazole-betam ethasone (Lotrisone) lotionIndications: Intertrigo APPLY TO THE AFFECTED AREA(S) TWICE DAILY FOR 28 DAYS 30 mL 1 09/23/20 24 Active HealthyLax 17 g packetIndications: Constipation, unspecified constipation type Mix 1 packet in 8 ounces of water, juice, coffee or tea and drink once a day 30 packet 3 06/30/20 24 Active acetaminophen (Tylenol) 325 MG tabletIndications: Pain TAKE 1 TABLET BY MOUTH EVERY 8 HOURS NEEDED FOR MODERATE PAIN OR FOR FEVER 30 tablet 07/31/20 24 Active glucose blood test stripIndications:T ype 2 diabetes mellitus with stage 1 chronic kidney disease, without long-term current use of insulin ([facility]) ([facility]) Check bs bid dx diabetes 100 each 12 08/04/20 24 025 Active glucose blood (OneTouch Verio) test stripIndications:T ype 2 diabetes mellitus with stage 1 chronic kidney disease, without long-term current use of insulin ([facility]) ([facility]),Type 2 diabetes mellitus with microalbuminuria, with long-term current use of insulin ([facility]) TEST BLOOD SUGAR FOUR TIMES DAILY 120 each 11 08/04/20 24 Active FLUoxetine (PROzac) 40 MG capsuleIndications :Depressive disorder Take 1 capsule (40 mg) by mouth in the morning. 30 capsule 11 08/06/20 24 Active clonazePAM (KlonoPIN) 0.125 MG disintegrating tabletIndications: Dementia without behavioral disturbance ([facility]) Take 0.125 mg by mouth at bedtime. 08/07/20 24 Active Lancets (OneTouch Delica Plus [id number]) miscIndications:Un controlled type 2 diabetes mellitus with hyperglycemia ([facility]) USE DIRECTED TO TEST BLOOD SUGAR FOUR TIMES DAILY 100 each 5 10/09/19 25 Active nystatin (Mycostatin) creamIndications:C andidiasis Apply topically 2 times daily. 30 g 10/15/19 25 026 Active traZODone (Desyrel) 50 MG tablet 12/11/19 25 Active insulin aspart (NovoLOG FLEXPEN) 100 UNIT/ML penIndications:Typ e 2 diabetes mellitus with microalbuminuria, with long-term current use of insulin ([facility]) INJECT 4 UNITS SUBCUTANEOUSLY 10 MINUTES BEFORE LUNCH 15 mL 11 12/16/19 25 Active melatonin 3 MG tabletIndications: Dementia without behavioral disturbance ([facility]) Take 1 tab po at bedtime prn insomnia danish 90 tablet 3 12/23/19 Active omeprazole (PriLOSEC) [address] capsuleIndications :Gastroesophageal reflux disease, unspecified whether esophagitis present Take 1 capsule (40 mg) by mouth Once per day. 90 capsule 1 12/23/19 Active QUEtiapine (SEROquel) 25 MG tabletIndications: Severe Alzheimer's dementia with psychotic disturbance, unspecified timing of dementia onset ([facility]) TAKE 1 TABLET BY MOUTH EVERY EVENING (AT 4 IN THE AFTERNOON) and TAKE 1 TABLET BY MOUTH AT BEDTIME NEEDED AGITATION 60 tablet 2 01/03/20 Active Active Problems Patient Care Coordination No te Formatting of this note migh t be different from the original. Osvaldo social service coordinator [employer] [phone] Nurse [facility] Assistant Press Operator: Vivian, member services number [phone], provider services line, , option 4 Surgical Brace Maker Agency: [employer] [facility] Problem Noted Date Diagnosed Date Anemia 01/19/2025 Overview (01/19/2025): Lab Results Component Value Date HGB 11.8 08/02/2020 HGB 11.8 08/02/2020 HEMATOCRIT 36.5 08/02/2020 HEMATOCRIT 36.5 08/02/2020 -re-ordered labs 01/19/25 Assessment & Plan (01/19/2025 4:04 PM EDT): Lab Results Component Value Date HGB 11.8 08/02/2020 HGB 11.8 08/02/2020 HEMATOCRIT 36.5 08/02/2020 HEMATOCRIT 36.5 08/02/2020 -re-ordered labs 01/19/25 Candidiasis 10/15/2024 Overview (10/15/2024): Erythema on bilateral axilla, consistent with candidiasis. -prescribed nystatin (Mycostatin) cream 10/15/24 Assessment & Plan (10/15/2024 2:22 PM EST): Erythema on bilateral axilla, consistent with candidiasis. -prescribed nystatin (Mycostatin) cream 10/15/24 Episode of recurrent major d epressive disorder, unspecified depression episode severity 10/07/2024 Acute nasopharyngitis 07/31/2024 Assessment & Plan (07/31/2024 1:37 PM EST): Hydrate with plenty of water (avoid caffeine and alcohol), crystal lite lemonade, herbal teas. Use saline nose drops to loosen mucus + Flonase bid x 1w Take Acetaminophen (Tylenol??) as needed to reduce fever, headache, body aches or discomfort Start Z-pack ONLY if she continues with fever, worsening congestion or change in MS. I explained to the daughter that sxs are most likely related to viral URI and that they should be improving within 2-4d. Poor dentition 05/21/2024 Overview (08/04/2024): -referral placed to dentistry 05/21/24 - Referring to [facility] 08/04/24 Assessment & Plan (08/04/2024 1:34 PM EST): -referral placed to dentistry 05/21/24 - Referring to [facility] 08/04/24 Assessment & Plan (05/21/2024 11:36 AM EDT): -referral placed to dentistry 05/21/24 Intertrigo 05/16/2024 Urinary frequency 05/16/2024 Assessment & Plan (05/16/2024 3:46 PM EDT): In light of recent change in behaviors, patient was not able to provide sample at office I will order for lab UA and culture and I will treat empirically with bactrim Ingrown nail 11/26/2023 Overview (11/26/2023): -Referral made to Podiatry on 11/26/2023 Assessment & Plan (11/26/2023 12:14 PM EST): - Referral made to Podiatry on 11/26/2023 Difficulty sleeping 11/08/2023 Overview (11/26/2023): -Continue melatonin 2.5 mg once daily 11/08/23 Assessment & Plan (01/30/2024 11:37 AM EDT): -Continue melatonin 2.5 mg once daily 11/08/23 Assessment & Plan (11/26/2023 12:14 PM EST): -Continue melatonin 2.5 mg once daily 11/08/23 Assessment & Plan (11/08/2023 10:44 AM EST): -Start melatonin 2.5 mg once daily 11/08/23 Palpitations 10/10/2023 Overview (10/10/2023): Family olson she was diagnosed with an arhythmia in [place] and request cardiology referral. Referral to cardio done 10/10/23 Assessment & Plan (01/30/2024 11:38 AM EDT): Family whitney she was diagnosed with an arhythmia in [place] and request cardiology referral. Referral to cardio done 10/10/23 Assessment & Plan (11/26/2023 10:55 AM EST): Family olson she was diagnosed with an arhythmia in [place] and request cardiology referral. Referral to cardio done 10/10/23 Assessment & Plan (10/10/2023 10:36 AM EST): Family olson she was diagnosed with an arhythmia in [place] and request cardiology referral. Referral to cardio done 10/10/23 Class 1 obesity 10/03/2023 10/03/2023 Other specified health status 06/11/2023 Overview (08/05/2024): -next annual evaluation due after 08/04/25 -eye care facilitated by [facility] referral 01/30/2024 -dental home is [facility] referral 01/30/2024 -healthcare proxy on file 10/10/23 -MOLST form on file 10/10/23 Assessment & Plan (08/05/2024 2:04 PM EST): -next annual evaluation due after 08/04/25 -eye care facilitated by [facility] referral 01/30/2024 -dental home is [facility] 01/30/2024 -healthcare proxy on file 10/10/23 -MOLST form on file 10/10/23 Assessment & Plan (05/21/2024 11:36 AM EDT): -next physical exam due after 06/11/2024 -eye care facilitated by [facility] referral 01/30/2024 -dental home is [facility] 01/30/2024 -healthcare proxy on file 10/10/23 -MOLST form on file 10/10/23 Assessment & Plan (01/30/2024 11:05 AM EDT): -next physical exam due after 06/11/2024. -eye care facilitated by [facility] referral 01/30/2024 -dental home is [facility] 01/30/2024 -healthcare proxy on file 10/10/23 Pt has MOST form on file 10/10/23 Assessment & Plan (11/26/2023 10:54 AM EST): -next physical exam due after 06/11/2024. -eye care facilitated by -dental home is -healthcare proxy on file 10/10/23 Pt has MOST form on file 10/10/23 Assessment & Plan (10/10/2023 9:47 AM EST): -next physical exam due after 06/11/2024. -eye care facilitated by -dental home is -healthcare proxy on file 10/10/23 Pt has MOST form on file 10/10/23 Assessment & Plan (09/19/2023 9:17 AM EST): -next physical exam due after 06/11/2024. -eye care facilitated by -dental home is Assessment & Plan (06/11/2023 9:16 AM EDT): -next physical exam due after 06/11/2024. -eye care facilitated by -dental home is Bilateral hearing loss 06/11/2023 Disorder of thyroid 06/11/2023 Vitamin B deficiency 06/11/2023 Overview (01/19/2025): - ordered labs 01/19/25 Assessment & Plan (01/19/2025 4:03 PM EDT): - ordered labs 01/19/25 DNR (do not resuscitate) 06/11/2023 Stage 3a chronic kidney disease 06/05/2023 Dementia without behavioral disturbance 11/15/19 Overview (01/19/2025): Severe, advanced stage dementia; Pt does not talk respond to question, dress, or feed herself. Cared for by daughter Mirta and Mary perkins. Pt met with [facility] 06/12/2023 -Daughter reports pt becomes anxious and aggressive without her medications -Followed by [facility] since 02/25/24 with Cj Logan NP -Memory clinic visit 08/08/24 started clonazepam 0.124 mg at bedtime disintegrating tab for increased anxiety in afternoons and awakenings at night with discontinuation trazodone. But 07/2024 clonazepam stopped and lorazepam 0.5 at bedtime started since this is shorter acting. -melatonin increased to 6mg at bedtime -continue Trazodone 50mg and Seroquel 25mg at bedtime for sleep and improvement of involuntary movents. -not taking lorazepam -CHW at memory clinic to contact Mirta to assist with [facility] respite hours. -tylenol 650 bid for pain/discomfort -televisit with memory clinic 11/04/2024 -reports doing well on Melatonin, Seroquel, and Trazodone in the evening and needs an occasional Clonazepam 01/19/25. Assessment & Plan (01/19/2025 4:03 PM EDT): Severe, advanced stage dementia; Pt does not talk respond to question, dress, or feed herself. Cared for by daughter Mirta and Mary perkins. Pt met with [facility] 06/12/2023 -Daughter reports pt becomes anxious and aggressive without her medications -Followed by [facility] since 02/25/24 with Cj Logan NP -Memory clinic visit 08/08/24 started clonazepam 0.124 mg at bedtime disintegrating tab for increased anxiety in afternoons and awakenings at night with discontinuation trazodone. But 07/2024 clonazepam stopped and lorazepam 0.5 at bedtime started since this is shorter acting. -melatonin increased to 6mg at bedtime -continue Trazodone 50mg and Seroquel 25mg at bedtime for sleep and improvement of involuntary movents. -not taking lorazepam -CHW at memory clinic to contact Mirta to assist with [facility] respite hours. -tylenol 650 bid for pain/discomfort -televisit with memory clinic 11/04/2024 -reports doing well on Melatonin, Seroquel, and Trazodone in the evening and needs an occasional Clonazepam 01/19/25. Assessment & Plan (11/06/2024 11:42 AM EST): Severe, advanced stage dementia; Pt does not talk respond to question, dress, or feed herself. Cared for by daughter Mirta and Mary perkins. Pt met with [facility] 06/12/2023 -Daughter reports pt becomes anxious and aggressive without her medications -Followed by [facility] since 02/25/24 with Cj Logan NP -Memory clinic visit 08/08/24 started clonazepam 0.124 mg at bedtime disintegrating tab for increased anxiety in afternoons and awakenings at night with discontinuation trazodone. But 07/2024 clonazepam stopped and lorazepam 0.5 at bedtime started since this is shorter acting. -melatonin increased to 6mg at bedtime -continue Trazodone 50mg and Seroquel 25mg at bedtime for sleep and improvement of involuntary movents. -not taking lorazepam -CHW at memory clinic to contact Mirta to assist with [facility] respite hours. -tylenol 650 bid for pain/discomfort -televisit with memory clinic 11/04/2024 -we placed rx for diapers, wipes and gloves 10/31/[address] for transfer bench, shower chiar with no slip alluminum body Assessment & Plan (10/15/2024 2:21 PM EST): Severe dementia; Pt does not talk respond to question, dress, or feed herself. Cared for by daughter Mirta and Carroll downeyra. Pt meeting with [facility] 06/12/2023, i've advised them to call [employer] to discuss durable medical equipment. -Daughter reports pt becomes anxious and aggressive without her medications -Followed by [facility] since 02/25/24 with Cj Logan NP 04/02/24 -Memory clinic visit 08/08/24 given progression of Alzheimer dementia with psychotic disturbance, hospice is appropriate. -started clonazepam 0.124 mg at bedtime disintegrating tab for increased anxiety in afternoons and awakenings at night -melatonin increased to 6mg at bedtime -discontinue trazodone -increase Seroquel to 37.5 at bedtime and if tolerated increase further to 50mg at bedtime -tylenol 650 bid for pain/dicomfort Assessment & Plan (08/05/2024 1:51 PM EST): Severe dementia; Pt does not talk respond to question, dress, or feed herself. Cared for by daughter Mirta and Carroll perkinsra. Pt meeting with [facility] 06/12/2023, i've advised them to call [employer] to discuss durable medical equipment. -Referral to memory clinic 07/23/2023 -Pt presscribed multiple meds in [place] including: memantine 10 slowly being discontinued 02/2024 as not contributing to quality of life, first will wean off donepezil donepezil 5 changed to 1/2 tab daily for one month then discontinued 02/2024 as not contributing to quality of life Seroquel 25 Trazodone 50 temazepam 30 (decreased to 15 by me 09/2023 as I was concerned for oversedation) -Daughter reports pt becomes anxious and aggressive without her medications -seen by [facility] 02/25/24 with Cj Logan NP 04/02/24 -Pt stopped Temazepam -Per daughter she is taking Seroquel at 4pm and at bedtime. I sent new rx. She is also taking Trazodone at night. - - Recommending Memory clinic, who will be contacting the pt 08/04/24 Assessment & Plan (05/21/2024 1:52 PM EDT): Severe dementia; Pt does not talk respond to question, dress, or feed herself. Cared for by daughter Mirta and Mary perkins. Pt meeting with [facility] 06/12/2023, i've advised them to call [employer] to discuss durable medical equipment. -Referral to memory clinic 07/23/2023 -Pt presscribed multiple meds in [place] including: memantine 10 slowly being discontinued 02/2024 as not contributing to quality of life, first will wean off donepezil donepezil 5 changed to 1/2 tab daily for one month then discontinued 02/2024 as not contributing to quality of life Seroquel 25 Trazodone 50 temazepam 30 (decreased to 15 by me 09/2023 as I was concerned for oversedation) -Daughter reports pt becomes anxious and aggressive without her medications -seen by [facility] 02/25/24 with Cj Logan NP 04/02/24 -Pt stopped Temazepam -Per daughter she is taking Seroquel at 4pm and at bedtime. I sent new rx. She is also taking Trazodone at night. Assessment & Plan (2024 12:06 PM EDT): Severe dementia; Pt does not talk respond to question, dress, or feed herself. Cared for by daughter Mirta and Mary perkins. Pt meeting with [facility] 06/12/2023, i've advised them to call [employer] to discuss durable medical equipment. -Referral to memory clinic 07/23/2023 -Pt presscribed multiple meds in [place] including: memantine 10 slowly being discontinued 02/2024 as not contributing to quality of life, first will wean off donepezil donepezil 5 changed to 1/2 tab daily for one month then discontinued 02/2024 as not contributing to quality of life Seroquel 25 Trazodone 50 temazepam 30 (decreased to 15 by me 09/2023 as I was concerned for oversedation) -Daughter reports pt becomes anxious and aggressive without her medications -seen by [facility] 02/25/24 with Cj Logan NP 04/02/24 -Pt stopped Temazepam -Taking Seroquel around 4pm and Trazodone at night. Assessment & Plan (01/30/2024 11:37 AM EDT): Severe dementia; Pt does not talk respond to question, dress, or feed herself. Pt meeting with [facility] 06/12/2023, i've advised them to call [facility] insurance to discuss durable medical equipment. -Referral to memory clinic 07/23/2023 -Pt presscribed multiple meds in [place] including: memantine 10 donepezil 5 seroquel 25 razodone 50 temazepam 30 (decreased to 15 by me 09/2023 as I was concerned for oversedation) -Daughter reports pt becomes anxious and aggressive without her medications -Pt was prescribed Restroril 30mg in [place]. Advised of side effects and danger in elderly. Decreased to 15mg nightly 10/03/23 and will wean as tolerated -Referral re sent 10/10/23 to memory clinic, number given [phone] for daughter to call on 11/26/2023 -Advised patient to start taking Seroquel 25 mg in the morning to help with agitation -Will decrease Temazepam dose From 15 mg to 7.5 mg 11/08/23 Assessment & Plan (01/03/2024 9:24 AM EDT): Fu'd by PCP, see previous note. I will write a rx for a Tub Transfer Bench and Sliding Shower Chair to prevent falls in the bat tub. Patient needs assistance for all tranfers. Assessment & Plan (11/26/2023 11:30 AM EST): Severe dementia; Pt does not talk respond to question, dress, or feed herself. Pt meeting with [facility] 06/12/2023, i've advised them to call [employer] to discuss durable medical equipment. -Referral to memory clinic 07/23/2023 -Pt presscribed multiple meds in [place] including: memantine 10 donepezil 5 seroquel 25 razodone 50 temazepam 30 (decreased to 15 by md 09/2023 as I was concerned for oversedation) -Daughter reports pt becomes anxious and aggressive without her medications -Pt was prescribed Restroril 30mg in [place]. Advised of side effects and danger in elderly. Decreased to 15mg nightly 10/03/23 and will wean as tolerated -Referral re sent 10/10/23 to memory clinic, number given [phone] for daughter to call on 11/26/2023 -Advised patient to start taking Seroquel 25 mg in the morning to help with agitation -Will decrease Temazepam dose From 15 mg to 7.5 mg 11/08/23 Assessment & Plan (11/08/2023 10:48 AM EST): Severe dementia; Pt does not talk respond to question, dress, or feed herself. Pt meeting with [facility] 06/12/2023, i've advised them to call [employer] insurance to discuss durable medical equipment. -Referral to memory clinic 07/23/2023 -Pt presscribed multiple meds in [place] including: memantine 10 donepezil 5 seroquel 25 razodone 50 temazepam 30 (decreased to 15 by md 09/2023 as I was concerned for oversedation) -Daughter reports pt becomes anxious and aggressive without her medications -Pt was prescribed Restroril 30mg in [place]. Advised of side effects and danger in elderly. Decreased to 15mg nightly 10/03/23 and will wean as tolerated -Referral re sent 10/10/23 to memory clinic -Advised patient to start taking Seroquel 25 mg in the morning to help with agitation -Will decrease Temazepam dose From 15 mg to 7.5 mg on 11/08/23 Assessment & Plan (10/10/2023 10:35 AM EST): Sever dementia, Pt does not talk respond to question, dress, or feed herself. Pt meeting with [facility] 06/12/2023, i've advised them to call [facility] insurance to discuss durable medical equipment. -referral to memory clinic 07/23/2023 -pt presscribed multiple meds in [place] including: memantine 10 donepezil 5 seroquel 25 razodone 50 temazepam 30 (decreased to 15 by me 09/2023 as I was concerned for oversedation) -daughter repots pt becomes anxious and aggressive without her medications. -pt was prescribed restroril 30mg in [place]. Advised of side effects and danger in elderly. Decreased to 15mg nightly 10/03/23 and will wean as tolerated. -referral re sent 10/10/23 to memory clinic Assessment & Plan (09/19/2023 9:17 AM EST): Sever dementia, Pt does not talk respond to question, dress, or feed herself. Pt meeting with [facility] 06/12/2023, i've advised them to call [facility] insurance to discuss durable medical equipment. -referral to memory clinic 07/23/2023 Assessment & Plan (07/23/2023 11:56 AM EDT): Sever dementia, Pt does not talk respond to question, dress, or feed herself. Pt meeting with [facility] 06/12/2023, i've advised them to call [facility] insurance to discuss durable medical equipment. -referral to memory clinic 07/23/2023 Assessment & Plan (06/11/2023 10:08 AM EDT): Sever dementia, Pt does not talk respond to question, dress, or feed herself. Pt meeting with [facility] 06/12/2023, i've advised them to call [facility] insurance to discuss durable medical equipment. 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 Pathologist was not sure about being able to make sure that the tumor was all noninvasive, and therefore she had left axillary sentinel biopsy and re-excision left breast biopsy site anteiormargin on 11/15/12. Pathology revealed benign lymph nodes (two) and no residual ductal carcinoma in-situ identified. She is currently under the care of Dr. Hector Bullock for radiation therapy and completed five and a half weeks for radiation to the entire left breast and surrounding chest wall followed by a boost to the biopsy site using a smaller field. She saw oncologist Dr. Cruz on 09/2013. Because the patient has Er/IL negative disease, she will not benefit from anti-estrogen therapy. Mammo 10/16/11 BIRADS 2 negative. Recommending follow up 1 year. Last mammo 08/06/2021 BIRADS 2 Assessment & Plan (08/04/2024 1:33 PM EST): Left breast quadrantectomy on 10/22/[address] 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 Pathologist was not sure about being able to make sure that the tumor was all noninvasive, and therefore she had left axillary sentinel biopsy and re-excision left breast biopsy site anteiormargin on 11/15/12. Pathology revealed benign lymph nodes (two) and no residual ductal carcinoma in-situ identified. She is currently under the care of Dr. Hector Bullock for radiation therapy and completed five and a half weeks for radiation to the entire left breast and surrounding chest wall followed by a boost to the biopsy site using a smaller field. She saw oncologist Dr. Cruz on 09/2013. Because the patient has Er/[place] negative disease, she will not benefit from anti-estrogen therapy. Mammo 10/16/11 BIRADS 2 negative. Recommending follow up 1 year. Last mammo 08/06/2021 BIRADS 2 Assessment & Plan (01/30/2024 11:40 AM EDT): Left breast quadrantectomy on 10/22/[address] 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 Pathologist was not sure about being able to make sure that the tumor was all noninvasive, and therefore she had left axillary sentinel biopsy and re-excision left breast biopsy site anteiormargin on 11/15/12. Pathology revealed benign lymph nodes (two) and no residual ductal carcinoma in-situ identified. She is currently under the care of Dr. Hector Bullock for radiation therapy and completed five and a half weeks for radiation to the entire left breast and surrounding chest wall followed by a boost to the biopsy site using a smaller field. She saw oncologist Dr. Cruz on 09/2013. Because the patient has Er/[place] negative disease, she will not benefit from anti-estrogen therapy. Mammo 10/16/11 BIRADS 2 negative. Recommending follow up 1 year. Last mammo 08/06/2021 BIRADS 2 Assessment & Plan (11/26/2023 11:05 AM EST): Left breast quadrantectomy on 10/22/[address] 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 Pathologist was not sure about being able to make sure that the tumor was all noninvasive, and therefore she had left axillary sentinel biopsy and re-excision left breast biopsy site anteiormargin on 11/15/12. Pathology revealed benign lymph nodes (two) and no residual ductal carcinoma in-situ identified. She is currently under the care of Dr. Hector Bullock for radiation therapy and completed five and a half weeks for radiation to the entire left breast and surrounding chest wall followed by a boost to the biopsy site using a smaller field. She saw oncologist Dr. Cruz on 09/2013. Because the patient has Er/[place] negative disease, she will not benefit from anti-estrogen therapy. Mammo 10/16/11 BIRADS 2 negative. Recommending follow up 1 year. Last mammo 08/06/2021 BIRADS 2 Assessment & Plan (09/19/2023 9:17 AM EST): Left breast quadrantectomy on 10/22/[address] 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 Pathologist was not sure about being able to make sure that the tumor was all noninvasive, and therefore she had left axillary sentinel biopsy and re-excision left breast biopsy site anteiormargin on 11/15/12. Pathology revealed benign lymph nodes (two) and no residual ductal carcinoma in-situ identified. She is currently under the care of Dr. Hector Bullock for radiation therapy and completed five and a half weeks for radiation to the entire left breast and surrounding chest wall followed by a boost to the biopsy site using a smaller field. She saw oncologist Dr. Cruz on 09/2013. Because the patient has Er/[place] negative disease, she will not benefit from anti-estrogen therapy. Mammo 10/16/11 BIRADS 2 negative. Recommending follow up 1 year. Last mammo 10/21/2018 BIRADS 2 Assessment & Plan (07/23/2023 9:50 AM EDT): Left breast quadrantectomy on 10/22/[address] 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 Pathologist was not sure about being able to make sure that the tumor was all noninvasive, and therefore she had left axillary sentinel biopsy and re-excision left breast biopsy site anteiormargin on 11/15/12. Pathology revealed benign lymph nodes (two) and no residual ductal carcinoma in-situ identified. She is currently under the care of Dr. Hector Bullock for radiation therapy and completed five and a half weeks for radiation to the entire left breast and surrounding chest wall followed by a boost to the biopsy site using a smaller field. She saw oncologist Dr. Cruz on 09/2013. Because the patient has Er/[place] negative disease, she will not benefit from anti-estrogen therapy. Mammo 10/16/11 BIRADS 2 negative. Recommending follow up 1 year. Last mammo 10/21/2018 BIRADS 2 Type 2 diabetes mellitus wit h microalbuminuria, with long-term current use of insulin 06/13/2012 Overview (01/19/2025): Diabetes is controlled. Per CDTM, A1C goal of <8% Lab Results Component Value Date HGBA1C 6.9 (H) 05/19/2024 HGBA1C 9.6 (A) 09/19/2023 HGBA1C 7.6 (A) 07/23/2023 Lab Results Component Value Date CREATININE 1.57 (H) 05/19/2024 EGFR 32 05/19/2024 MICROALBCREU 20.3 05/19/2024 MICROALBCREU 32.8 (H) 06/11/2023 LDLCHOLCAL 184 (H) 05/19/2024 -Primo/Arb: lisinopril 2.5mg -Statin therapy: atorvastatin 80mg. Held during hospitalization 10/17 -Diabetic eye exam: Referred to [facility] 08/04/24 -Diabetic foot exam: -Continue lifestyle modifications -Continue current medications -Stop glipizide-metformin 07/23/2023 -Lantus initially started 07/23/2023 -Continue novolog flex pen 4u prior to food intake, started 10/10/23 -CDTM discontinued Jardiance 06/03/24 due to UTI and report of urinary frequency -Continue Lantus to 22 units daily 11/08/23 -Ordered labs 01/19/25 Assessment & Plan (01/19/2025 4:04 PM EDT): Diabetes is controlled. Per CDTM, A1C goal of <8% Lab Results Component Value Date HGBA1C 6.9 (H) 05/19/2024 HGBA1C 9.6 (A) 09/19/2023 HGBA1C 7.6 (A) 07/23/2023 Lab Results Component Value Date CREATININE 1.57 (H) 05/19/2024 EGFR 32 05/19/2024 MICROALBCREU 20.3 05/19/2024 MICROALBCREU 32.8 (H) 06/11/2023 LDLCHOLCAL 184 (H) 05/19/2024 -Primo/Arb: lisinopril 2.5mg -Statin therapy: atorvastatin 80mg. Held during hospitalization 10/17 -Diabetic eye exam: Referred to [facility] 08/04/24 -Diabetic foot exam: -Continue lifestyle modifications -Continue current medications -Stop glipizide-metformin 07/23/2023 -Lantus initially started 07/23/2023 -Continue novolog flex pen 4u prior to food intake, started 10/10/23 -CDTM discontinued Jardiance 06/03/24 due to UTI and report of urinary frequency -Continue Lantus to 22 units daily 11/08/23 -Ordered labs 01/19/25 Assessment & Plan (10/15/2024 2:22 PM EST): Diabetes is controlled. Per CDTM, A1C goal of <8% Lab Results Component Value Date HGBA1C 6.9 (H) 05/19/2024 HGBA1C 9.6 (A) 09/19/2023 HGBA1C 7.6 (A) 07/23/2023 Lab Results Component Value Date CREATININE 1.57 (H) 05/19/2024 EGFR 32 05/19/2024 MICROALBCREU 20.3 05/19/2024 MICROALBCREU 32.8 (H) 06/11/2023 LDLCHOLCAL 184 (H) 05/19/2024 -Primo/Arb: lisinopril 2.5mg -Statin therapy: atorvastatin 80mg. Held during hospitalization 10/17 -Diabetic eye exam: Referred to [facility] 08/04/24 -Diabetic foot exam: -Continue lifestyle modifications -Continue current medications -Stop glipizide-metformin 07/23/2023 -Lantus initially started 07/23/2023 -Continue novolog flex pen 4u prior to food intake, started 10/10/23 -CDTM discontinued Jardiance 06/03/24 due to UTI and report of urinary frequency -Continue Lantus to 22 units daily 11/08/23 Assessment & Plan (08/05/2024 1:58 PM EST): Diabetes is controlled. Per CDTM, A1C goal of <8% Lab Results Component Value Date HGBA1C 6.9 (H) 05/19/2024 HGBA1C 9.6 (A) 09/19/2023 HGBA1C 7.6 (A) 07/23/2023 Lab Results Component Value Date CREATININE 1.57 (H) 05/19/2024 EGFR 32 05/19/2024 MICROALBCREU 20.3 05/19/2024 MICROALBCREU 32.8 (H) 06/11/2023 LDLCHOLCAL 184 (H) 05/19/2024 -Primo/Arb: lisinopril 2.5mg -Statin therapy: atorvastatin 80mg. Held during hospitalization 10/17 -Diabetic eye exam: Referred to [facility] 08/04/24 -Diabetic foot exam: -Continue lifestyle modifications -Continue current medications -Stop glipizide-metformin 07/23/2023 -Lantus initially started 07/23/2023 -Continue novolog flex pen 4u prior to food intake, started 10/10/23 -CDTM discontinued Jardiance 06/03/24 due to UTI and report of urinary frequency -Continue Lantus to 22 units daily 11/08/23 Assessment & Plan (05/21/2024 11:20 AM EDT): Diabetes is uncontrolled. Lab Results Component Value Date HGBA1C 6.9 (H) 05/19/2024 HGBA1C 9.6 (A) 09/19/2023 HGBA1C 7.6 (A) 07/23/2023 Lab Results Component Value Date CREATININE 1.57 (H) 05/19/2024 EGFR 32 05/19/2024 MICROALBCREU 20.3 05/19/2024 MICROALBCREU 32.8 (H) 06/11/2023 LDLCHOLCAL 184 (H) 05/19/2024 -Primo/Arb: lisinopril 2.5mg -Statin therapy: atorvastatin 80mg. Held during hospitalization 10/17 -Diabetic eye exam: -Diabetic foot exam: -Continue lifestyle modifications -Continue current medications -Stop glipizide-metformin 07/23/2023 -Lantus initially started 07/23/2023 -Continue novolog flex pen 4u prior to food intake, started 10/10/23 -Daughter is not giving Jardiance 10 mg daily. Advised to start if blood sugars are elevated -Continue Lantus to 22 units daily 11/08/23 Assessment & Plan (2024 8:33 AM EDT): Diabetes is uncontrolled. - Lab Results Component Value Date HGBA1C 9.6 (A) 09/19/2023 HGBA1C 7.6 (A) 07/23/2023 HGBA1C 7.3 (A) 06/11/2023 - Lab Results Component Value Date MICROALBUR 57.0 06/11/2023 CREATININE 1.45 (H) 06/11/2023 -Primo/Arb: lisinopril 2.5mg -Statin therapy: atorvastatin 80mg. Held during hospitalization 10/17 -Diabetic eye exam: -Diabetic foot exam: -Continue lifestyle modifications -Continue current medications -Stop glipizide-metformin 07/23/2023 -Lantus initially started 07/23/2023 -Continue novolog flex pen 4u prior to food intake, started 10/10/23 Assessment & Plan (01/30/2024 11:39 AM EDT): Diabetes is uncontrolled. - Lab Results Component Value Date HGBA1C 9.6 (A) 09/19/2023 HGBA1C 7.6 (A) 07/23/2023 HGBA1C 7.3 (A) 06/11/2023 - Lab Results Component Value Date MICROALBUR 57.0 06/11/2023 CREATININE 1.45 (H) 06/11/2023 -Primo/Arb: lisinopril 2.5mg -Statin therapy: atorvastatin 80mg. Held during hospitalization 10/17 -Diabetic eye exam: -Diabetic foot exam: -Continue lifestyle modifications -Continue current medications -Stop glipizide-metformin 07/23/2023 -Lantus initially started 07/23/2023 -Continue novolog flex pen 4u prior to food intake, started 10/10/23 -Daughter is not giving Jardiance 10 mg daily. Advised to start if blood sugars are elevated -Continue Lantus to 22 units daily 11/08/23 Assessment & Plan (11/26/2023 11:27 AM EST): Diabetes is uncontrolled. - Lab Results Component Value Date HGBA1C 9.6 (A) 09/19/2023 HGBA1C 7.6 (A) 07/23/2023 HGBA1C 7.3 (A) 06/11/2023 - Lab Results Component Value Date MICROALBUR 57.0 06/11/2023 CREATININE 1.45 (H) 06/11/2023 -Primo/Arb: lisinopril 2.5mg -Statin therapy: atorvastatin 80mg. Held during hospitalization 10/17 -Diabetic eye exam: -Diabetic foot exam: -Continue lifestyle modifications -Continue current medications -Stop glipizide-metformin 07/23/2023 -Lantus initially started 07/23/2023 -Continue novolog flex pen 4u prior to food intake, started 10/10/23 -Daughter is not giving Jardiance 10 mg daily. Advised to start if blood sugars are elevated -Continue Lantus to 22 units daily 11/08/23 Assessment & Plan (11/08/2023 10:41 AM EST): Diabetes is uncontrolled. - Lab Results Component Value Date HGBA1C 9.6 (A) 09/19/2023 HGBA1C 7.6 (A) 07/23/2023 HGBA1C 7.3 (A) 06/11/2023 -No results found for: POCA1C - Lab Results Component Value Date MICROALBUR 57.0 06/11/2023 CREATININE 1.45 (H) 06/11/2023 -changes: short acting insulin added 10/10/23 -Primo/Arb: lisinopril 2.5mg -Statin therapy: atorvastatin 80mg. Held during hospitalization 10/17 -Diabetic eye exam: -Diabetic foot exam: -Continue lifestyle modifications -Continue current medications -Stop glipizide-metformin 07/23/2023 -Start lantus 7u daily 07/23/2023. Increased lantus 14u daily 09/19/23 -Start novolog flex pen 4u prior to food intake -Continue Jardiance 10 mg daily -Increase Lantus to 22 units daily 11/08/23 Assessment & Plan (10/10/2023 10:32 AM EST): Diabetes is controlled. - Lab Results Component Value Date HGBA1C 9.6 (A) 09/19/2023 HGBA1C 7.6 (A) 07/23/2023 HGBA1C 7.3 (A) 06/11/2023 -No results found for: POCA1C - Lab Results Component Value Date MICROALBUR 57.0 06/11/2023 CREATININE 1.45 (H) 06/11/2023 -changes: short acting insulin added 10/10/23 -Primo/Arb: lisinopril 2.5mg -Statin therapy: atorvastatin 80mg -Diabetic eye exam: -Diabetic foot exam: -Continue lifestyle modifications -Continue current medications -Stop glipizide-metformin 07/23/2023 -Start lantus 7u daily 07/23/2023. Increased lantus 14u daily 09/19/23 -Pt is currently on lantus 20u -Start novolog flex pen 4u prior to food intake. -telephone call with BIRD Amador 1 week and me in one month Assessment & Plan (09/19/2023 12:06 PM EST): Diabetes is controlled. - Lab Results Component Value Date HGBA1C 7.6 (A) 07/23/2023 HGBA1C 7.3 (A) 06/11/2023 HGBA1C 9.3 (H) 12/03/2020 -No results found for: POCA1C - Lab Results Component Value Date MICROALBUR 57.0 06/11/2023 CREATININE 1.45 (H) 06/11/2023 -Primo/Arb: lisinopril 2.5mg -Statin therapy: atorvastatin 80mg -Diabetic eye exam: -Diabetic foot exam: -Continue lifestyle modifications -Continue current medications -Stop glipizide-metformin 07/23/2023 -Start lantus 7u daily 07/23/2023. Increased lantus 14u daily 09/19/23 Assessment & Plan (07/23/2023 11:54 AM EDT): Diabetes is controlled. - Lab Results Component Value Date HGBA1C 7.3 (A) 06/11/2023 HGBA1C 9.3 (H) 12/03/2020 HGBA1C 10.9 (H) 08/02/2020 HGBA1C 10.9 (H) 08/02/2020 -No results found for: POCA1C - Lab Results Component Value Date MICROALBUR 57.0 06/11/2023 CREATININE 1.45 (H) 06/11/2023 -Primo/Arb: -Statin therapy: -Diabetic eye exam: -Diabetic foot exam: -Continue lifestyle modifications -Continue current medications -Stop glipizide-metformin 07/23/2023 -Start lantus 7u daily 07/23/2023 Assessment & Plan (06/11/2023 9:15 AM EDT): Diabetes is controlled. - Lab Results Component Value Date HGBA1C 9.3 (H) 12/03/2020 HGBA1C 10.9 (H) 08/02/2020 HGBA1C 10.9 (H) 08/02/2020 -No results found for: POCA1C - Lab Results Component Value Date MICROALBUR 1.0 08/02/2020 -Changes: -Primo/Arb: -Statin therapy: -Diabetic eye exam: -Diabetic foot exam: -Continue lifestyle modifications -Continue current medications Dyslipidemia 06/13/2012 Overview (05/21/2024): Lab Results Component Value Date CHOL 286 (H) 05/19/2024 CHOL 163 06/11/2023 TRIG 257 (H) 05/19/2024 TRIG 133 06/11/2023 HDL 51 05/19/2024 HDL 58 06/11/2023 LDLCHOLCAL 184 (H) 05/19/2024 LDLCHOLCAL 79 06/11/2023 -continue lifestyle modification Assessment & Plan (08/04/2024 1:33 PM EST): Lab Results Component Value Date CHOL 286 (H) 05/19/2024 CHOL 163 06/11/2023 TRIG 257 (H) 05/19/2024 TRIG 133 06/11/2023 HDL 51 05/19/2024 HDL 58 06/11/2023 LDLCHOLCAL 184 (H) 05/19/2024 LDLCHOLCAL 79 06/11/2023 -continue lifestyle modification Assessment & Plan (05/21/2024 11:37 AM EDT): Lab Results Component Value Date CHOL 286 (H) 05/19/2024 CHOL 163 06/11/2023 TRIG 257 (H) 05/19/2024 TRIG 133 06/11/2023 HDL 51 05/19/2024 HDL 58 06/11/2023 LDLCHOLCAL 184 (H) 05/19/2024 LDLCHOLCAL 79 06/11/2023 -continue lifestyle modification Assessment & Plan (2024 8:32 AM EDT): Lab Results Component Value Date TRIG 133 06/11/2023 -continue lifestyle modifications Assessment & Plan (01/30/2024 11:39 AM EDT): Lab Results Component Value Date TRIG 133 06/11/2023 -continue lifestyle modifications Assessment & Plan (11/26/2023 10:53 AM EST): Lab Results Component Value Date TRIG 133 06/11/2023 -continue lifestyle modifications Assessment & Plan (11/08/2023 10:40 AM EST): Lab Results Component Value Date TRIG 133 06/11/2023 -continue lifestyle modifications Assessment & Plan (09/19/2023 9:16 AM EST): Lab Results Component Value Date TRIG 133 06/11/2023 CHOL 163 06/11/2023 LDLCHOLCAL 79 06/11/2023 HDL 58 06/11/2023 Lab Results Component Value Date TRIG 133 06/11/2023 -continue lifestyle modifications Assessment & Plan (07/23/2023 9:49 AM EDT): Lab Results Component Value Date TRIG 133 06/11/2023 -continue lifestyle modifications Assessment & Plan (06/11/2023 9:15 AM EDT): No results found for: CHOLESTEROL, LDLCHOL, TRIG, HDLCHOL, CHOLHDLRAT -continue lifestyle modifications Gastroesophageal reflux disease 06/13/2012 Hypertension 06/13/2012 Overview (11/08/2023): -Blood pressure is at goal -Continue lifestyle modifications -Continue Cartia 120 mg once daily -Continue current medications Assessment & Plan (08/04/2024 1:31 PM EST): -Blood pressure is at goal -Continue lifestyle modifications -Continue Cartia 120 mg once daily -Continue current medications Assessment & Plan (01/30/2024 11:38 AM EDT): -Blood pressure is at goal -Continue lifestyle modifications -Continue Cartia 120 mg once daily -Continue current medications Assessment & Plan (11/26/2023 10:53 AM EST): -Blood pressure is at goal -Continue lifestyle modifications -Continue Cartia 120 mg once daily -Continue current medications Assessment & Plan (11/08/2023 10:42 AM EST): -Blood pressure is at goal -Continue lifestyle modifications -Continue Cartia 120 mg once daily -Continue current medications Assessment & Plan (09/19/2023 9:16 AM EST): -Blood pressure is at goal -Continue lifestyle modifications -Continue current medications Assessment & Plan (07/23/2023 9:50 AM EDT): -Blood pressure is at goal -Continue lifestyle modifications -Continue current medications Assessment & Plan (06/11/2023 9:15 AM EDT): -Blood pressure is at goal -Continue lifestyle modifications -Continue current medications Osteoporosis 06/13/2012 Overview (01/30/2024): As alendronate and vitamin D supplementation have not been refilled since patient moved from [place], will order dexa scan for patient to assess osteoporosis, and if warranted consider initiation of Prolia 60mg subcutaneously every 6 months. -If Prolia is initiated, ordering Calcium+D3 supplementation 600mg/10mcg twice daily. Per [facility], alendronate is not recommended in patients with CrCl< 35mL/min (based on height of 5'1 from 11/19/2020, CrCl (TBW) 32.1mL/min based on creatinine from 06/11/23). Assessment & Plan (01/30/2024 11:38 AM EDT): As alendronate and vitamin D supplementation have not been refilled since patient moved from [place], will order dexa scan for patient to assess osteoporosis, and if warranted consider initiation of Prolia 60mg subcutaneously every 6 months. -If Prolia is initiated, ordering Calcium+D3 supplementation 600mg/10mcg twice daily. Per [facility], alendronate is not recommended in patients with CrCl< 35mL/min (based on height of 5'1 from 11/19/2020, CrCl (TBW) 32.1mL/min based on creatinine from 06/11/23). Resolved Problems Problem Noted Date Diagnosed Date Resolved Date Cough in adult 07/31/2024 10/07/2024 Fever 07/31/2024 10/07/2024 Assessment & Plan (07/31/2024 1:37 PM EST): No evidence of UTI, its most likely related to viral URI. Skin infection 05/21/2024 10/07/2024 Overview (05/21/2024): -prescribed Bactroban ointment Assessment & Plan (05/21/2024 11:37 AM EDT): -prescribed Bactroban ointment Mouth pain 05/16/2024 05/20/2024 Assessment & Plan (05/16/2024 3:45 PM EDT): I did not see any lesions or infections I will prescribed her local viscose lidocaine Severe Alzheimer's dementia with psychotic disturbance 03/31/2024 01/19/2025 Pain due to dental caries 01/03/2024 Assessment & Plan (01/03/2024 9:22 AM EDT): Needs dental evaluation, probably under sedation due to underlying dementia and behavioral issues, will not cooperate. I gave Mirta information re [facility] dental clinic in [place] so that she can call for an urgent appt/within the next 1-3d max. I will send a formal referral for [facility] dental clinic I will order disposable oral swabs sticks for mouth cleaning. Disease due to severe acute respiratory syndrome coronavirus 2 (SARS-CoV-2) 09/19/202304/25 Overview (11/26/2023): -hospitilized for covid-19 from 09/19 to 09/20/23 Assessment & Plan (01/30/2024 11:39 AM EDT): -hospitilized for covid-19 from 09/19 to 09/20/23 Assessment & Plan (11/26/2023 10:55 AM EST): -hospitilized for covid-19 from 09/19 to 09/20/23 Assessment & Plan (10/10/2023 9:10 AM EST): hospitilized for covid-19 from 09/19 to 09/20/23 Assessment & Plan (09/19/2023 12:35 PM EST): 78 year old woman with type 2 diabetes, hypertension, dementia, DNR status with increased AMS now not responding to vocalization, increased grimacing and crying. Covid test in office positive and blood glucose [facility]. Unable to give urine to evaluate for ketones. -Urine culture was negative 09/13 in walk in -treated for presumed UA with Bactrum by [facility] 08/29 Culture not available to me at this time. -to ER for COVID positive with AMS and critically high blood sugar, unable to rule out DKA in office. Altered mental status 09/19/20232023 Major depressive disorder 06/13/2012 Overview (10/03/2023): Pt returned to area 2022 and had been on multiple psychiatric medications in [place] including Restoril 30mg. I advised this medication has significant side effects and I prefer she not be on it unless need it but it can cuase withdrawal if rmoved fast. Restoril decreased from 30mg to 15 mg 10/03/2023, monitory for withdrawal symptoms. Assessment & Plan (10/10/2023 8:49 AM EST): Pt returned to area 2022 and had been on multiple psychiatric medications in [place] including Restoril 30mg. I advised this medication has significant side effects and I prefer she not be on it unless need it but it can cuase withdrawal if rmoved fast. Restoril decreased from 30mg to 15 mg 10/03/2023, monitory for withdrawal symptoms. Osteoarthritis 06/13/2012 01/19/2025 Encounters Date Type Department Care Team Description 01/21/[address] [facility] [address] [place] [address] Roxy Flood MD 01/20/[address] [facility] [address] [place], [place] [phone] Roxy Flood MD Appointment Confirmation 01/19/2025 11:[address] [facility] [address] [place], [place] [phone] Roxy Flood MD Dementia without behavioral disturbance (CMS/HCC) (Primary Dx); Anemia, unspecified type; Type 2 diabetes mellitus with microalbuminuria, with long-term current use of insulin (CMS/[facility]); Dyslipidemia; Vitamin B deficiency 01/19/[address] [facility] [address] [place] [phone] Roxy Flood MD Call Back Request 01/19/[address] [facility] [address] [place] [phone] Roxy Flood MD 01/19/[address] [facility] [address] [place] [phone] Roxy Flood MD 01/19/2025 Travel 01/19/[address] [facility] [address] [place] [address] [phone] Roxy Flood MD 01/15/[address] [facility] [address] [place] [address] [phone] Roxy Flood MD chartprep 01/02/[address] [facility] [address] [place] [address] [phone] Roxy Flood MD Severe Alzheimer's dementia with psychotic disturbance, unspecified timing of dementia onset ([facility]) 12/22/[address] [facility] [address] [place] [address] Roxy Flood MD Gastroesophageal reflux disease, unspecified whether esophagitis present 12/22/[address] [facility] [address] [place] [phone] Roxy Flood MD Gastroesophageal reflux disease, unspecified whether esophagitis present 12/15/[address] [facility] [address] [place] [phone] Roxy Flood MD Type 2 diabetes mellitus with microalbuminuria, with long-term current use of insulin ([facility]) 12/10/[address] [facility] [address] [place] [phone] Roxy Flood MD Gastroesophageal reflux disease, unspecified whether esophagitis present; Dementia without behavioral disturbance (CMS/HCC) 11/26/2024 11:[address] [facility] [address] [place] [address] [place] Moya LPN Encounter for immunization (Primary Dx) 11/26/2024 10:30 AM EST Office Visit [facility] [address] [place], [place] [id number] Wai, Estephania, OD Diabetes type 2, no ocular involvement ([facility]) (Primary Dx); Intermediate stage nonexudative age-related macular degeneration of both eyes; Meibomian gland disease, unspecified laterality; Nevus of choroid of left eye; Pseudophakia of both eyes; Chorioretinal scar, left; Presbyopia of both eyes 11/26/2024 Travel 11/21/[address] [facility] [address] [place], [place] [phone] Roxy Flood MD Results (Patient daughter walked in stating the shower chair she needs is a tub transfer bench sliding transfer bench. She went to [place] to cotton picker operator the chair and they wanted to give her a shower chair she already haves at home. ) 11/20/2024 Travel from Last 3 Months Immunizations Immunization Administration Dates Next Due Hep B, adult 11/27/2018,11/25/2015,06/20/2013 Influenza High-dose Quadriva lent Preservative Free 06/11/2023,08/02/2020 Influenza injectable quadriv alent IIV4 with preservative 06/14/2016 Influenza injectable quadriv alent preservative free 11/27/2018,08/26/2015 Influenza, High Dose Seasona l, Preservative Free 08/04/2024,08/14/2019,06/14/2017 Influenza, IIV3, injectable 06/11/2023,1 10/02/2019,08/14/2019,11/27,06/14/2017,06/14/2016,08/26/2015 ,10/08/2014 Influenza, Split (incl. travis fied surface antigen) 06/20/2013,06/03/2012 Pfizer Covid-19 Vaccine 12+ 08/04/2024 Pneumococcal Conjugate PCV 13 06/14/2016 Pneumococcal Conjugate PCV 20 07/30/2023 Pneumococcal Polysaccharide PPSV23 06/14/2017, RSV Bivalent 09/13/2023 Tdap 11/26/2024,10/08/2014 Zoster, Recombinant 08/13/2023,06/11/2023 Zoster, live 06/20/2013 Social History Tobacco Use Types Packs/Day Years Used Date Smoking Tobacco: Never Smokeless Tobacco: Never Tobacco Cessation:Counseling Given: Not Answered Alcohol Use Standard Drinks/Week Comments Defer 0 [...] Orientation Straight 07/24/2022 10 :18 AM EDT Last Filed Vital Signs Vital Sign Reading Time Taken Comments Blood Pressure 140/78 08/04/2024 11:37 AM EST Pulse 63 08/04/2024 11:22 AM EST Temperature 36.2 ??C (97.1 ??F) 08/04/2024 11:[address] Respiratory Rate 14 08/04/2024 11:22 AM EST Oxygen Saturation 98% 08/04/2024 11:22 AM EST Inhaled Oxygen Concentration - - Weight 59 kg (130 lb) 07/31/2024 10:12 AM EST Height 149.9 cm (4' 11 ) 07/31/2024 10:12 AM EST Body Mass Index 26.26 07/31/2024 10:12 AM EST Plan of Treatment Upcoming Encounters Date Type Department Care Team (Late st Contact Info) Description 03/16/2025 11:[address] [facility] [address] [place] [address] Roxy Flood MD [address] [place] [address] Health Maintenance Due Date Last Done Comments Dental X-Ray: Bitewings 1945 Diabetes: Foot Exam 1956 Dental Prophylaxis 02/08/2010 08/10/2009, 0 05/07/2009, 02/03/2009 Dental Oral Exam 09/17/2024 03/17/2024 Diabetes: Hemoglobin A1C 11/19/20242 024, 09/19/2023, 07/23/2023, Additional history exists COVID-19 Vaccine ( season) 2025 08/04/2024, 12/09/2020, 11/11/2020 Lipid Panel 05/19/2025 05/19/2024, 06/11/2023 Depression Screening 05/21/2025 05/21/2024, 05/21/20 24 SDOH Screening 07/24/2025 07/24/2024 Alcohol/Substance Use Screening 08/04/2025 08/04/2024 Tobacco Screening 12/12/2025 12/12/2024 Eye Exam 11/26/2026 11/26/2024, 01/2025, 11/26/2024, Additional history exists Dental X-Ray: Full Mouth 03/18/2027 03/17/2024 DTaP/Tdap/Td Vaccines (3 - Td or Tdap) 11/26/2034 11/26/2024, 10/08/2014 Hepatitis B Vaccines Completed 11/27/2018, 11/25/2015, 06/20/2013 Hepatitis C Screening Completed 06/11/2023 Pneumococcal Vaccine: 50+ Years Completed 07/30/2023, 06/14/2017, 06/14/2016, Additional history exists Zoster Vaccines Completed 08/13/2023, 05/25, 06/20/2013 RSV Patients and Patients Aged 60 years or older Completed 09/13/2023 Influenza Vaccine Completed 08/04/2024, , 06/11/2023, Additional history exists HIB Vaccines Aged Out No longer eligi ble based on patient's age to complete this topic HPV Vaccines Aged Out No longer eligi ble based on patient's age to complete this topic Hepatitis A Vaccines Aged Out No long er eligible based on patient's age to complete this topic IPV Vaccines Aged Out No longer eligi ble based on patient's age to complete this topic Meningococcal B Vaccine Aged Out No l onger eligible based on patient's age to complete this topic Meningococcal Vaccine Aged Out No shane debbie eligible based on patient's age to complete this topic RSV under 20 months Aged Out No longe r eligible based on patient's age to complete this topic Rotavirus Vaccines Aged Out No longer eligible based on patient's age to complete this topic Goals Goal Patient Goal Type Associated Problems Recent Progress Patient-Stated? Author Blood Pressure < 150/90 Blood Pressure 140/78(2023 11:37 AM EST) Mickey Tidwell Hemoglobin A1c < 8 Result Component 6.9( 9:26 AM EDT) No Mickey Amaya Procedures Procedure Name Priority Date/Time Associated Diagnosis Comments HEMOGLOBIN A1C Routine 05/19/2024 9:26 AM EDT Uncontrolled type 2 diabetes mellitus with hyperglycemia ([facility]) LIPID PANEL, STANDARD Routine 05/19/2024 9:26 AM EDT Uncontrolled type 2 diabetes mellitus with hyperglycemia (CMS/HCC) PANORAMIC RADIOGRAPHIC IMAGE Routine 03/17/2024 1:00 PM EDT COMPREHENSIVE ORAL EVALUATION - NEW OR ESTABLISHED PATIENT Routine 03/17/2024 1:00 PM EDT HEPATITIS C ANTIBODY Routine 06/11/2023 10:22 AM EDT Encounter for hepatitis C screening test for low risk patient PROPHYLAXIS - ADULT Routine 08/10/2009 1 2:00 AM EST from Last 3 Months or Most Recently Relevant to Health Maintenance Results * (ABNORMAL) Hemoglobin A1c (05/19/2024 9:26 AM EDT) Hemoglobin A1c 6.9(H) <6.0 % [facility] Comment:Hemoglobin A1C Refer ence Range Adults: 4.8 - 6.0 % Non diabetic: < 6.0 % Goal: < 7.0 %Additional Action Suggested: > 8.0 %Note: Hemoglobin A1c results are invalid for patients with abnormal amounts of HbF. Blood transfusions may impact the HbA1c concentration in the patient sample. Estimated Average Glucose 151 mg/dL [facility] Comment:eAG = Estimated ave rage glucose which is %A1C expressed asaverage glucose, using the formula of the [id number] Glucose study (ADAG), Diabetes Care, Vol.31,#8,Apr. 2007 Blood Venous blood specimen / Unknown 05/19/2024 9:26 AM EDT 05/19/2024 11:52 AM EDT us Roxy Flood MD LAB BLOOD ORDERABLES Final Result [facility] [address] [place] [address] [phone] * (ABNORMAL) Lipid Panel, Standard (05/19/2024 9:26 AM EDT) Triglycerides 257(H) <150 mg/dL [facility] Comment:Desirable Triglyceri de: less than 150 mg/dLBorderline High Triglyceride 150-199 mg/dLHigh Triglyceride: 200-499 mg/dLVery High Triglyceride: greater than or equal to 5OO mg/dL Cholesterol 286(H) <200 mg/dL [facility] Comment:Desirable Cholestero l: less than 200 mg/dLBorderline High Cholesterol: 200-239 mg/dLHigh Cholesterol: greater than 239 mg/dL LDL Cholesterol Calculated 184(H) <100 mg/dL [facility] Comment:Desirable LDL: less than 100 mg/dLNear Optimal/Above Optimal LDL: 110- 129 mg/dLBorderline High LDL: 130-159 mg/dLHigh LDL: 160-189 mg/dLVery High LDL: greater than or equal to 190 mg/dL HDL Cholesterol 51 >40 mg/dL [facility] Comment:Desirable HDL: great er than 40 mg/dL Note: This HDL assay may give artificially low results in patients with liver disease. Blood Venous blood specimen / Unknown 05/19/2024 9:26 AM EDT 05/19/2024 11:52 AM EDT Roxy Flood MD LAB BLOOD ORDERABLES Final Result Performing Organization Address City/[facility]/ZIP Co de Phone Number [facility] [address] [place] [phone] * Hepatitis C Ab (06/11/2023 10:22 AM EDT) Hepatitis C Antibody Nonreactive Nonreactive [facility] Comment:Antibodies to HCV no t detected; does not exclude early acuteHCV infection. 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
--- OUTSIDE RECORDS SUMMARY | 2025-02-10 09:08 | XMS_ITS | Encounter Summary ---
Author Organization [employer] Address [address] [facility] 7t [place] [address] Care Team Providers Care Manager Of Exhibitions And Collections Name Role Phone Roxy Flood MD Primary Care Provider +1- [phone] Reason for Visit * Reason Comments Med Refill Encounter Details Date Type Department Care Team (Late st Contact Info) Description 04/23/2024 Refill [facility] MEDICINE [address] [place] [address] Roxy Flood MD [address] [place] [address] Alzheimer's dementia of other onset, unspecified dementia severity, unspecified whether behavioral, psychotic, or mood disturbance or anxiety (CMS/[facility]) Social History Tobacco Use Types Packs/Day Years Used Date Smoking Tobacco: Never Smokeless Tobacco: Never Alcohol Use Standard Drinks/Week Comments Defer 0 (1 standard drink = 0.6 oz pur e alcohol) Depression Answer Date Recorded Patient Health Questionnaire-9 [...] Info) Description 03/16/2025 11:15 AM EDT Telemedicine [facility] MEDICINE [address] [place] [phone] Roxy Flood MD [address] [place] [phone] documented as of this encounter Goals Goal [...] behavioral, psychotic, or mood disturbance or anxiety (CMS/[facility]) documented in this encounter Additional Health Concerns Assessment Noted Time PHQ-9 Depression Total Score: 11 023 9:42 AM EDT documented as of this encounter Care Teams Manager Of Exhibitions And Collections Relationship Specialty Start Date End Date Roxy Flood MD [address] [place] [address] PCP - General Family Medicine 03/21/23 jC Harp NP [facility] Memory Care 10/07/24 Magi [place] RN [facility] (formally Caregiver [address] [place] [address] 11/04/24 documented as of this encounter
--- OUTSIDE RECORDS SUMMARY | 2025-02-10 09:08 | XMS_ITS | Encounter Summary ---
Author Organization [employer] Address [address] [facility] 7t [place] [address] Care Team Providers Care Spring Upholsterer Name Role Phone Stutsman, Roxy LUEVANO Primary Care Provider +1- [phone] Reason for Visit * Reason Comments Med Refill Encounter Details Date Type Department Care Team (Late st Contact Info) Description 10/01/[address] [facility] MEDICINE [address] [place] [address] Alicja Johnson MD [address] [place] [address] Moderate dementia, unspecified dementia type, unspecified whether behavioral, psychotic, or mood disturbance or anxiety (CMS/[facility]) Social History Tobacco Use Types Packs/Day Years [...] AM EDT documented as of this encounter Miscellaneous Notes * Telephone Encounter - Roxy Flood MD - 10/03/2023 4:07 PM EST Spoke to daughter decreased to 15mg . I sent to pharmacy documented in this encounter Plan of Treatment Upcoming Encounters Date Type Department Care Team (Late st Contact Info) Description 03/16/2025 11:15 AM EDT Telemedicine [facility] MEDICINE [address] [place] [address] Roxy Flood MD [address] [place] [address] documented as of this encounter Goals Goal Patient Goal Type Associated Problems Recent Progress Patient-Stated? Author Blood Pressure < 150/90 Blood Pressure 140/78(2023 11:37 AM EST) No Mickey Amaya Hemoglobin A1c < 8 Result Component 6.9( 9:26 AM EDT) No Mickey Amaya documented as of this encounter Visit Diagnoses Diagnosis Moderate dementia, unspecified dementia type, unspecified whether behavioral, psychotic, or mood disturbance or anxiety (CMS/HCC) documented in this encounter Additional Health Concerns Assessment Noted Time PHQ-9 Depression Total Score: 11 023 9:42 AM EDT documented as of this encounter Care Teams Spring Upholsterer Relationship Specialty Start Date End Date Roxy Flood MD [address] [place] [address] PCP - General Family Medicine 03/21/23 Cj Harp NP [facility] Memory Care 10/07/24 Magi [place] RN [address] [address] 11/04/24 documented as of this encounter
--- OUTSIDE RECORDS SUMMARY | 2025-02-10 09:08 | XMS_ITS | Encounter Summary ---
Author Organization [employer] Address [address] [facility] 7t [place] [address] Care Team Providers Care Health Care Coordinator Name Role Phone Roxy Flood MD Primary Care Provider +1- [phone] Reason for Visit * Reason Comments Med Refill Encounter Details Date Type Department Care Team (Late st Contact Info) Description 04/24/2024 Refill [facility] [address] [place] [address] Roxy Flood MD [address] [place] [address] Pain Social History Tobacco Use Types Packs/Day Years [...] Info) Description 03/16/2025 11:15 AM EDT Telemedicine [facility] [address] [place] [address] Roxy Flood MD [address] [place] [address] documented as of this encounter Goals Goal Patient Goal Type Associated Problems Recent Progress Patient-Stated? Author Blood Pressure < 150/90 Blood Pressure 140/78(2023 11:37 AM EST) No Mickey Amaya Hemoglobin A1c < 8 Result Component 6.9( 9:26 AM EDT) No Mickey Amaya documented as of this encounter Visit Diagnoses Diagnosis Pain Generalized pain documented in this encounter Additional Health Concerns Assessment Noted Time PHQ-9 Depression Total Score: 11 023 9:42 AM EDT documented as of this encounter Care Teams Health Care Coordinator Relationship Specialty Start Date End Date Roxy Flood MD [address] [place] [phone] PCP - General Family Medicine 03/21/23 Cj Harp NP [facility] Memory Care 10/07/24 Magi [place] RN [facility] (formally Careg[facility] Homes [address] [facility] [address] [place] [address] 11/04/24 documented as of this encounter
--- OUTSIDE RECORDS SUMMARY | 2025-02-10 09:08 | XMS_ITS | Encounter Summary ---
Author Organization [employer] Address [address] [facility] 7t [place] [address] Care Team Providers Care Community Health Navigator Name Role Phone Roxy Flood MD Primary Care Provider +1- [phone] Reason for Visit * Reason Onset Date Comments Call Back Request 01/19/2025 Encounter Details Date Type Department Care Team (Late st Contact Info) Description 01/19/2025 Telephone [facility] [address] [place] [address] Roxy Flood MD [address] [place] [address] Call Back Request Social History Tobacco Use Types Packs/Day Years [...] encounter Miscellaneous Notes * Telephone Encounter - Javi Hall - 01/19/2025 1:24 PM EDT Tc from pt returning call, stating she received a message on her sister's phone but was not informed of the reason, pt is requesting a callback for clarification. [phone] (tajik speaker) documented in this encounter Plan of Treatment Upcoming Encounters Date Type Department Care Team (Late st Contact Info) Description 03/16/2025 11:15 AM EDT Telemedicine [facility] MEDICINE [address] [place] [address] Roxy Flood MD [address] [place] [address] documented as of this encounter Goals Goal Patient Goal Type Associated Problems Recent Progress Patient-Stated? Author Blood Pressure < 150/90 Blood Pressure 140/78(2023 11:37 AM EST) No Mickey Amaya Hemoglobin A1c < 8 Result Component 6.9( 9:26 AM EDT) No Mickey Amaya documented as of this encounter Visit Diagnoses Not on filedocumented in this encounter Additional Health Concerns Assessment Noted Time PHQ-9 Depression Total Score: 3 05/21/20 24 10:39 AM EDT documented as of this encounter Care Teams Community Health Navigator Relationship Specialty Start Date End Date Roxy Flood MD [address] [place] [address] PCP - General Family Medicine 03/21/23 Cj Harp NP [facility] Geriatrics [facility] Memory Care 10/07/24 Magi [place] RN [facility] Caregiver [address] [phone] 11/04/24 documented as of this encounter
--- OUTSIDE RECORDS SUMMARY | 2025-02-10 09:08 | XMS_ITS | Encounter Summary ---
Author Organization [employer] Address [address] [place] [address] 7t [place] [address] Care Team Providers Care Radiation Oncology Therapist Name Role Phone Roxy Flood MD Primary Care Provider +1- [phone] Encounter Details Date Type Department Care Team (Late st Contact Info) Description 04/25/2023 Abstract [facility] MEDICINE [address] [place] [address] Roxy Flood MD [address] [place] [address] [phone] Social History Tobacco Use Types Packs/Day Years [...] Info) Description 03/16/2025 11:15 AM EDT Telemedicine [facility] MEDICINE [address] [place] [phone] Roxy Flood MD [address] [place] [address] [phone] documented as of this encounter Visit Diagnoses Not on filedocumented in this encounter Care Teams Radiation Oncology Therapist Relationship Specialty Start Date End Date Roxy Flood MD [address] [place] [address] PCP - General Family Medicine 03/21/23 Cj Harp NP [facility] Memory Care 10/07/24 Magi [place], RN [facility] ([address] [address] 11/04/24 documented as of this encounter
--- OUTSIDE RECORDS SUMMARY | 2025-02-10 09:08 | XMS_ITS | Encounter Summary ---
Author Organization [employer] Address [address] [facility] 7t [place] [address] Care Team Providers Care Snath Handle Assembler Name Role Phone Roxy Flood MD Primary Care Provider +1- [phone] Reason for Visit * Reason Comments Med Refill Encounter Details Date Type Department Care Team (Late st Contact Info) Description 11/08/2023 Refill [facility] MEDICINE [address] [place] [address] Roxy Flood MD [address] [place] [address] Social History Tobacco Use Types Packs/Day Years [...] 03/16/2025 11:15 AM EDT Telemedicine [facility] MEDICINE [address] [place] [address] Roxy Flood MD [address] [place] [address] documented as of this encounter Goals Goal [...] documented as of this encounter Care Teams Snath Handle Assembler Relationship Specialty Start Date End Date Roxy Flood MD [address] [place] [address] PCP - General Family Medicine 03/21/23 Cj Harp NP [facility] Memory Care 10/07/24 Magi Raymond RN [facility] ([address] [phone] 11/04/24 documented as of this encounter
--- OUTSIDE RECORDS SUMMARY | 2025-02-10 09:08 | XMS_ITS | Encounter Summary ---
Author Organization [employer] Address [address] [facility] 7t [place] [address] Care Team Providers Care Highway Patrol Commander Name Role Phone Roxy Flood MD Primary Care Provider +1- [phone] Encounter Details Date Type Department Care Team (Late st Contact Info) Description 10/03/2023 Abstract [facility] [address] [place] [address] Roxy Flood MD [address] [place] [address] Social History Tobacco Use Types Packs/Day Years [...] Info) Description 03/16/2025 11:15 AM EDT Telemedicine [facility] [address] [place] [phone] Roxy Flood MD [address] [place] [address] documented as of this encounter Goals Goal [...] documented as of this encounter Care Teams Highway Patrol Commander Relationship Specialty Start Date End Date Roxy Flood MD [address] [place] [address] PCP - General Family Medicine 03/21/23 Cj Harp NP [facility] Memory Care 10/07/24 Magi Raymond RN [facility] (formally [facility] [address] [facility] [address] [place] [address] 11/04/24 documented as of this encounter
--- OUTSIDE RECORDS SUMMARY | 2025-02-10 09:08 | XMS_ITS | Encounter Summary ---
Author Organization [employer] Address [address] [place] [address] 7t [place] [address] Care Team Providers Care Assistant Professor Of Biochemistry Name Role Phone Roxy Flood MD Primary Care Provider +1- [phone] Encounter Details Date Type Department Care Team (Late st Contact Info) Description 04/25/2023 Abstract [facility] MEDICINE [address] [place] [address] Roxy Flood MD [address] [place] [address] [phone] Social History Tobacco Use Types Packs/Day Years [...] Info) Description 03/16/2025 11:15 AM EDT Telemedicine [facility] MEDICINE [address] [place] [address] [phone] Roxy Flood MD [address] [place] [address] [phone] documented as of this encounter Visit Diagnoses Not on filedocumented in this encounter Care Teams Assistant Professor Of Biochemistry Relationship Specialty Start Date End Date Roxy Flood MD [address] [place] [address] PCP - General Family Medicine 03/21/23 Cj Harp NP [facility] Memory Care 10/07/24 Magi [place], RN [facility] ([address] [address] 11/04/24 documented as of this encounter
--- OUTSIDE RECORDS SUMMARY | 2025-02-10 09:08 | XMS_ITS | Encounter Summary ---
Author Organization [employer] Address [address] [facility] 7t [place] [address] Care Team Providers Care Topstitcher Lockstitch Name Role Phone Roxy Flood MD Primary Care Provider +1- [phone] Reason for Visit * Reason Onset Date Comments ER Follow-up 09/20/2023 Encounter Details Date Type Department Care Team (Late st Contact Info) Description 09/20/2023 Telephone [facility] MEDICINE [address] [place] [address] Roxy Flood MD [address] [place] [address] ER Follow-up Social History Tobacco Use Types Packs/Day Years [...] encounter Miscellaneous Notes * Telephone Encounter - Jocy Lopez - 09/20/2023 4:12 PM EST Patient calling to report ED visit on : Date: 09/19-09/20 Hospital: [facility] Seen for: Covid, constipation, and elevated blood sugar Patient advised will forward to team nurse for follow up Please contact pt daughter at [phone] documented in this encounter Plan of Treatment Upcoming Encounters Date Type Department Care Team (Late st Contact Info) Description 03/16/2025 11:15 AM EDT Telemedicine [facility] MEDICINE [address] [place] [address] Roxy Flood MD [address] [place] [address] documented as of this encounter Goals Goal [...] documented as of this encounter Care Teams Topstitcher Lockstitch Relationship Specialty Start Date End Date Remigio, MD Roxy [address] [place] [address] PCP - General Family Medicine 03/21/23 Cj Harp NP [facility] Memory Care 10/07/24 Magi Raymond RN [address] [address] 11/04/24 documented as of this encounter
[2025-02-10 11:42] LABS: MANUAL DIFF FLAG NO
[2025-02-10 12:02] LABS: Basophils Absolute Auto 0.1 X10*3/uL (0.0-0.2); Basophils Percent Auto 0.6 % (0-2); Eosinophils Percent Auto 11.6 % (0-4); Hematocrit 39.5 % (37.0-47.0); Imm Gran Abs Auto 0.03 X10*3/uL (0.00-0.03); Imm Gran Pct Auto 0.3 % (0.0-0.4); Lymphocytes Absolute Auto 2.8 X10*3/uL (1.2-4.9); Lymphocytes Percent Auto 31.5 % (20-40); Mean Corpuscular HGB Conc 32.9 g/dl (31.0-35.0); Mean Corpuscular Volume 91.2 fL (80.0-98.0); Mean Platelet Volume 10.6 fL (9.4-12.3); Monocytes Absolute Auto 0.5 X10*3/uL (0.1-1.2); Monocytes Percent Auto 5.1 % (2-11); Neutrophils Absolute Auto 4.5 x10*3/uL (2.0-8.3); Neutrophils Percent Auto 50.9 % (45-73); Platelet Count 280 X10*3/uL (160-400); Red Blood Count 4.33 X10*6/uL (4.20-5.50); Red Cell Distribution Width 14.2 % (11.0-16.0); White Blood Count 8.8 X10*3/uL (4.8-10.8)
[2025-02-10 12:11] LABS: Estimated Average Glucose 137 mg/dL; Hemoglobin A1C 157.6136 umol/L; Hemoglobin A1c % 6.4 % (<6.0); Total Hemoglobin (HGBA1C) 3371.6231 umol/L
[2025-02-10 12:36] LABS: Alanine Aminotransferase 26 U/L (0-31); Albumin Level 4.3 g/dL (3.5-5.0); Alkaline Phosphatase 94 U/L (39-117); Anion Gap 11 (12-20); Aspartate Amino Transferase 22 U/L (5-31); Bilirubin Direct 0.1 mg/dL (0.0-0.5); Bilirubin Total 0.4 mg/dL (0.0-1.0); Blood Urea Nitrogen 17 mg/dL (9-16); Calcium 9.7 mg/dL (8.4-10.2); Carbon Dioxide 24 mmol/L (22-29); Chloride 109 mmol/L (96-108); Cholesterol 328 mg/dL (<200); Estimated Glomerular Filt Rate 45; Ferritin 123 ng/mL (10-250); Glucose Random 100 mg/dL (60-115); HDL Cholesterol 43 mg/dL (>40); Iron 92 mcg/dL (30-160); LDL Cholesterol Calculated 224 mg/dL (<100); Percent Iron Saturation 29 % (15-50); Potassium 3.9 mmol/L (3.3-5.1); Sodium 140 mmol/L (135-145); TSH reflex Free T4 1.32 uIU/mL (0.32-4.0); Total Iron Binding Capacity 318 mcg/dL (228-428); Total Protein 8.1 g/dL (6.5-8.0); Triglycerides 308 mg/dL (<150); Unsaturated Iron Binding 226 ug/dL
[2025-02-10 12:49] LABS: Folate 13.9 ng/mL (> or = 4.0); Vitamin B12 707 pg/mL (200-900)
== END 2025-02-10 08:50 | disposition home or self-care (01) ==
LOC: HO.HHCL 08:49
PROVIDERS: Visit Provider Family Medicine
DX: E78.5 Hyperlipidemia, unspecified (principal); E53.9 Vitamin B deficiency, unspecified; D64.9 Anemia, unspecified; R80.9 Proteinuria, unspecified; E11.29 Type 2 diabetes mellitus with other diabetic kidney complication; Z79.4 Long term (current) use of insulin
CPT/HCPCS: 36415; 80048; 80061; 80076; 82607; 82728; 82746; 83036; 83540; 84443; 85025

== ENCOUNTER 2025-02-18 13:25 | Outpatient (REF) | payer MEDICARE, SELFPAY ==
--- OUTSIDE RECORDS SUMMARY | 2025-02-18 14:17 | XMS_ITS | Encounter Summary ---
Author Organization [employer] Address [address] [place] [address] [address] [place] [address] Care Team Providers Care Internet Cafe Manager Name Role Phone Roxy Flood MD Primary Care Provider [phone]- [phone] Encounter Details Date Type Department Care Team (Late st Contact Info) Description 08/11/2024 Orders Only [facility] [address] [place] [address] Roxy Flood MD [address] [place] [address] Dementia without behavioral disturbance (CMS/HCC) (Primary Dx) [...] Care Team (Late st Contact Info) Description 02/19/2025 2:30 PM EDT Telemedicine [facility] [address] [place] [phone] Veda Schroeder, PharmD [address] [place] [phone] 03/16/2025 11:15 AM EDT Telemedicine [facility] [address] [place] [id number] Roxy Flood MD [address] [place] [phone] documented as of this encounter Goals Goal Patient Goal Type Associated Problems Recent Progress Patient-Stated? Author Blood Pressure < 150/90 Blood Pressure 140/78(2023 11:37 AM EST) No Mickey Amaya Hemoglobin A1c < 8 Result Component 6.4( 5 8:51 AM EDT) No Mickey Amaya documented as of this encounter Visit Diagnoses Diagnosis Dementia without behavioral disturbance (CMS/HCC)- Primary documented in this encounter Additional Health Concerns Assessment Noted Time PHQ-9 Depression Total Score: 3 05/21/20 24 10:39 AM EDT documented as of this encounter Care Teams Internet Cafe Manager Relationship Specialty Start Date End Date Roxy Flood MD [address] [place] [address] PCP - General Family Medicine 03/21/23 Cj Harp NP [facility] 10/07/24 Magi Raymond RN [address] [address] 11/04/24 documented as of this encounter
[2025-02-18 16:46] LABS: Creatinine Urine 139.64 mg/dL; Microalbum/Creatinine Ratio Ur 24.3 ug/mg cr (<30)
== END 2025-02-18 13:26 | disposition home or self-care (01) ==
LOC: HO.HHCL 13:25
PROVIDERS: Visit Provider Family Medicine
DX: E11.29 Type 2 diabetes mellitus with other diabetic kidney complication (principal); R80.9 Proteinuria, unspecified; Z79.4 Long term (current) use of insulin
CPT/HCPCS: 82043; 82570

== ENCOUNTER 2025-04-14 16:28 | Outpatient (REF) | payer MEDICARE, SELFPAY ==
--- OUTSIDE RECORDS SUMMARY | 2025-04-14 16:45 | XMS_ITS | Data Portability ---
Author Organization [employer] Address [address] [place] [address] Care Team Providers Care Semiconductor Wafers Saw Operator Name Role Phone [facility] Referring Provider HIM CCA OTHER Assessment Encounter Date Assessment Date Assessment LastModified by Organization Details LastModified Time 08/29/2023 08/29/2023 I have reviewed and agree with the assessment and plan as documented by the technical support director. I provided real-time medical direction for this encounter and was immediately available to provide additional phone-based assistance as needed. 78F with 3 days of foul smelling urine, with hyperglycemic events. Pt dementia, requiring family care. Pt denies any pain or distress. No worsening confusion. No fever. No abdominal pain. No n/v/d. Hx of UTI in the past. O/E. No fever, alert and comfortable. No physical findings. U/A reveals + leuks, no nitrites. Recent labs reveal GFR 35. Gluc 300's Imp: Suspect UTI, recommend initiating abx and sending urine for culture. Recommend close follow up with PCP for glucose control. Discussion with family to monitor symptoms closely and to seek medical attention if increased confusion, fever, pain or new concerns. [email or web address] Not available 08/29/2023 17:54:21 03/24/2024 03/24/2024 Ms. Chantal Pablo is a 78yoF w/ a PMhx of Dm2 on insulin who is seen today for further evaluation of hyperglycemia. Ms Sd Pablo and her family report that for the past three weeks she has had higher blood sugars that normal for her; between 200-300. She endorses some increased thirst and urination but denies fevers/chills, abdominal pain, vomiting, wounds, or any other concerns. VSS. Medic on site reports no acute distress. POC UA is not infected, with negative LE, nitrties, negative ketones. She has novalog that she has not been using, noting that she was told by her PCP several months ago to only take it if she needs it. The rx is for four units before meals. Encouraged her to utilize her novalog and to take if blood sugar >180 before a meal. She has follow up with her primary team next week. No obvious infectious causes currently and red flags discussed with medic. [email or web address] Not available 03/24/2024 15:09:13 Plan of Treatment Reminders Order Date Submit Date Provider Last Modified By Organization Details Last Modified Time Details Appointments None recorded. Lab culture, urine 2022 023 [facility] (Centralized Electronic Ordering - All Locations), Patient Can Go To The Location Of Their Choice, 10:22:11 urinalysis , dipstick 2022 023 [facility], [address] [place] [address], [id number] 17:54:27 Referral None recorded. Procedures None recorded. Surgeries None recorded. Imaging None recorded. Medication Orders Bactrim DS 800 mg-160 mg tablet 2022 023 [facility], [address] [place] [address], [id number], 16:52:34 Patient TargetsNo targets recorded. Patient InstructionsNo instructions recorded. Reason for Referral None Reported. Results Created Date Observation Date Name Description Value Unit Range Abnormal Flag Note LastModifiedBy Organization Detail LastModifiedTime 08/29/2008/29/2023 URINE CULTU RE specimen description URINE Not Available [facility] (Centralized [facility] Ordering - All Locations) Patient Can Go To The Location Of Their Choice, [id number] 09/01/2023 10:22:11 08/29/2008/29/2023 URINE CULTU RE special requests NONE Not Available [facility] (Centralized Electronic Ordering - All Locations) Patient Can Go To The Location Of Their Choice, [id number] 09/01/2023 10:22:11 08/29/20 23 09/01/2023 URINE CULTU RE culture abnormal >100, 000 COL/M L ESCHE BALDEMAR A COLI This isola te was ident ified using Maldi -TOF syste m These AST resul ts were perfo rmed on the Vitek 2 ID and AST syste m Not Available [facility] (Centralized Electronic Ordering - All Locations) Patient Can Go To The Location Of Their Choice, [id number] 09/01/2023 10:22:11 08/29/20 23 09/01/2023 URINE CULTU RE report status FINAL 2022 Not Available [facility] (Centralized Electronic Ordering - All Locations) Patient Can Go To The Location Of Their Choice, [id number] 09/01/2023 10:22:11 08/29/20 23 09/01/2023 URINE CULTU RE organism ORGAN ISM >100, 000 COL/M L ESCHE BALDEMAR A COLI This isola te was ident ified using Maldi -TOF syste m These AST resul ts were perfo rmed on the Vitek 2 ID and AST syste m Not Available [facility] (Centralized Electronic Ordering - All Locations) Patient Can Go To The Location Of Their Choice, 09/01/2023 10:22:11 08/29/2009/01/2023 URINE CULTU RE method METHOD MIN. INHIB. CONC. (MCG/M L) Not Available [facility] (Centralized Electronic Ordering - All Locations) Patient Can Go To The Location Of Their Choice, 09/01/2023 10:22:11 08/29/20 23 09/01/2023 URINE CULTU RE ampicillin AMPICI LLIN INTERM EDIATE intermedi ate Not Available [facility] (Centralized Electronic Ordering - All Locations) Patient Can Go To The Location Of Their Choice, 09/01/2023 10:22:11 08/29/20 23 09/01/2023 URINE CULTU RE ampicillin/s ulbactam AMPICI LLIN/S ULBACT AM SUSCEP TIBLE susceptib le Not Available [facility] (Centralized Electronic Ordering - All Locations) Patient Can Go To The Location Of Their Choice, 09/01/2023 10:22:11 08/29/20 23 09/01/2023 URINE CULTU RE cefazolin CEFAZO NEFTALY SUSCEP TIBLE susceptib le Not Available [facility] (Centralized Electronic Ordering - All Locations) Patient Can Go To The Location Of Their Choice, [id number] 09/01/2023 10:22:11 08/29/20 23 09/01/2023 URINE CULTU RE cefepime CEFEPI ME SUSCEP TIBLE susceptib le Not Available [facility] (Centralized Electronic Ordering - All Locations) Patient Can Go To The Location Of Their Choice, [id number] 09/01/2023 10:22:11 08/29/20 23 09/01/2023 URINE CULTU RE ceftriaxone CEFTRI AXONE SUSCEP TIBLE susceptib le Not Available [facility] (Centralized Electronic Ordering - All Locations) Patient Can Go To The Location Of Their Choice, [id number] 09/01/2023 10:22:11 08/29/20 23 09/01/2023 URINE CULTU RE ciprofloxaci n CIPROF LOXACI N RESIST ANT resistant Not Available [facility] (Centralized Electronic Ordering - All Locations) Patient Can Go To The Location Of Their Choice, [id number] 09/01/2023 10:22:11 08/29/20 23 09/01/2023 URINE CULTU RE ertapenem ERTAPE NEM SUSCEP TIBLE susceptib le Not Available [facility] (Centralized Electronic Ordering - All Locations) Patient Can Go To The Location Of Their Choice, [id number] 09/01/2023 10:22:11 08/29/20 23 09/01/2023 URINE CULTU RE gentamicin GENTAM ICIN SUSCEP TIBLE susceptib le Not Available [facility] (Centralized Electronic Ordering - All Locations) Patient Can Go To The Location Of Their Choice, [id number] 09/01/2023 10:22:11 08/29/20 23 09/01/2023 URINE CULTU RE levofloxacin LEVOFL OXACIN RESIST ANT resistant Not Available [facility] (Centralized Electronic Ordering - All Locations) Patient Can Go To The Location Of Their Choice, [id number] 09/01/2023 10:22:11 08/29/20 23 09/01/2023 URINE CULTU RE nitrofuranto in NITROF URANTO IN SUSCEP TIBLE susceptib le Not Available [facility] (Centralized Electronic Ordering - All Locations) Patient Can Go To The Location Of Their Choice, [id number] 09/01/2023 10:22:11 08/29/20 23 09/01/2023 URINE CULTU RE piperacillin /tazobactam PIPERA CILLIN /TAZOB AC SUSCEP TIBLE susceptib le Not Available [facility] (Centralized Electronic Ordering - All Locations) Patient Can Go To The Location Of Their Choice, [id number] 09/01/2023 10:22:11 08/29/20 23 09/01/2023 URINE CULTU RE trimeth/sulf amethox TRIMET H/SULF AMETHO X SUSCEP TIBLE susceptib le Not Available [facility] (Centralized Electronic Ordering - All Locations) Patient Can Go To The Location Of Their Choice, [id number] 09/01/2023 10:22:11 08/29/20 23 08/29/2023 urina lysis , dipst ick Leukocytes positi ve Not Available Main - [facility] ed [address] [place] [address], [phone] 08/29/2023 17:44:52 08/29/20 23 08/29/2023 urina lysis , dipst ick Nitrite negati ve Not Available Main - [facility] ed [address] [place] [address], [phone] 08/29/2023 17:44:52 08/29/20 23 08/29/2023 urina lysis , dipst ick Blood negati ve Not Available Main - [facility] ed [address] [place] [address], [phone] 08/29/2023 17:44:52 08/29/20 23 08/29/2023 urina lysis , dipst ick Appearance clear Not Available [facility] [address] [place] [address], [phone] 08/29/2023 17:44:52 Result Notes None recorded. Medical Equipment None Reported. Medications Name Sig Start Date Stop Date Status Note LastModified by Organization Details LastModified Time medbox status USE DIRECTED active Not Available Not Available No t Available losartan 50 mg tablet TAKE 1 TABLET BY MOUTH DAILY IN THE EVENING active Not Available Not Available No t Available quetiapine 25 mg tablet TAKE 1 TABLET BY MOUTH AT BEDTIME NEEDED FOR SLEEP active Not Available Not Available No t Available fluoxetine 40 mg capsule TAKE 1 CAPSULE BY MOUTH EVERY MORNING active Not Available Not Available No t Available atorvastatin 80 mg tablet TAKE 1 TABLET BY MOUTH EVERY MORNING active Not Available Not Available No t Available donepezil 5 mg tablet TAKE 1 TABLET BY MOUTH AT BEDTIME active Not Available Not Available No t Available trazodone 50 mg tablet TAKE 1 TABLET BY MOUTH AT BEDTIME active Not Available Not Available No t Available atorvastatin 10 mg tablet TAKE 1 TABLET BY MOUTH DAILY IN THE MORNING active Not Available Not Available No t Available clotrimazole 1 % vaginal cream INSERT 1 APPLICATORF UL VAGINALLY AT BEDTIME FOR 7 DAYS active Not Available Not Available N ot Available risperidone 0.25 mg tablet TAKE 1 TABLET BY MOUTH DAILY AT BEDTIME active Not Available Not Available N ot Available sulfamethoxa zole 800 mg-trimethop rim 160 mg tablet TAKE 1 TABLET BY MOUTH EVERY 24 HOURS FOR 5 DAYS active Not Available Not Available N ot Available omeprazole 40 mg capsule,merle yed release TAKE 1 CAPSULE BY MOUTH EVERY MORNING BEFORE BREAKFAST active Not Available Not Available No t Available acetaminophe n 500 mg tablet TAKE 1 TABLET BY MOUTH EVERY 6 TO 8 HOURS NEEDED FOR MILD PAIN active Not Available Not Available No t Available temazepam 30 mg capsule TAKE 1 CAPSULE BY MOUTH AT BEDTIME active Not Available Not Available No t Available mupirocin calcium 2 % topical cream APPLY TOPICALLY TO AFFECTED AREA(S) TWICE DAILY active Not Available Not Available Not Available mupirocin 2 % topical ointment APPLY TOPICALLY TO THE AFFECTED AREA(S) TWICE DAILY active Not Available Not Available Not Available diltiazem 30 mg tablet TAKE 1 TABLET BY MOUTH EVERY MORNING active Not Available Not Available No t Available lisinopril 2.5 mg tablet TAKE 1 TABLET BY MOUTH EVERY MORNING active Not Available Not Available No t Available glipizide 2.5 mg-metformin 500 mg tablet TAKE 1 TABLET BY MOUTH TWICE DAILY active Not Available Not Available No t Available memantine 10 mg tablet TAKE 1 TABLET BY MOUTH TWICE DAILY IN THE MORNING AND IN THE EVENING active Not Available Not Available No t Available Alcohol Prep Pads USE DIRECTED EVERY DAY active Not Available Not Available No t Available Lantus Solostar U-100 Insulin 100 unit/mL (3 mL) subcutaneous pen INJECT 7 UNITS SUBCUTANEOU SLY AT BEDTIME active Not Available Not Available No t Available Novofine 32 32 gauge x 1/4 needle USE DIRECTED active Not Available Not Available No t Available blood pressure test kit-large cuff USE TO CHECK BLOOD PRESSURE EVERY MORNING active Not Available Not Available No t Available OneTouch Verio test strips USE TO TEST BLOOD SUGAR TWICE DAILY active Not Available Not Available Not Available OneTouch Verio Flex Meter USE DIRECTED TO TEST BLOOD SUGAR TWICE DAILY active Not Available Not Available No t Available OneTouch Delica Plus Lancet 33 gauge USE TO TEST BLOOD SUGAR TWICE DAILY active Not Available Not Available Not Available Vitals Date Recorded Respiratory rate Heart rate Body weight Body height Body temperature Oxygen saturation Oxygen saturation in Arterial blood by Pulse oximetry Systolic And Diastolic Provider Name and Address Organization Details Last Updated DateTime 4 16 /min 81 /min 26727.8 8 g 152.4 cm 97.6 [degF] 96 % 96 % 150/70 mm[Hg] Not Available [facility] 4 13:09:03 Date Recorded Respiratory rate Body temperature Heart rate Systolic And Diastolic Provider Name and Address Organization Details Last Updated DateTime 08/29/2023 18 /min 98.1 [degF] 80 /min 130/70 mm[Hg] Not Available [facility] 3 17:43:12 Social History None recorded. Functional Status None recorded. Mental Status None recorded. Family History Nothing Reported. Medical History No medical history recorded. Gynecological HistoryNo gynecological history recorded. Obstetrics History GPAL:G 0 P 0 0 0 0 Past Encounters Encounter ID Performer Location Encounter Start Date Encounter Closed Date Diagnosis/Indication Diagnosis SNOMED-CT Code Diagnosis ICD10 Code Diagnosis Note [id number] Mirna Swan MD Main - [facility] [address] [place] [phone] 08/29/2023 17:43:06 08/30/2023 10:22:42 Urinary symptoms 659976807 R39.9 [id number] Marilin Hoang MD Main - [facility] [address] [place] [phone] 03/24/2024 13:00:40 03/24/2024 18:49:00 Hyperglycemia 36922504 R73.9 Health Concerns Section Related Observation LastModified by Organization Detai ls LastModified Time None Recorded Concern Status LastModified by Organization Details LastModified Time None Recorded Advance Directives Directive None Recorded Payers Insurance Date Sequence Insurance Name Policy Number Policy Oakes Covered Member ID Oakes Member ID Guarantor Name 04/24/2024 1 [facility] DOS ON OR AFTER 2022 - DUAL ELIGIBLE - SENIOR LIVING OPTIONS AND ONE CARE (MEDICARE REPLACEMENT/ADV ANTAGE - HMO) Chantal Pablo [id number] Chantal Pablo Notes Date Note Type Note Provider Name and Address Organization Details Recorded Time 08/29/2023 text/html HPI: Call to Chantal Pablo, spoke with Mirta who is legal guardian. Reports pt had BS of 459mg/dL at 9:27pm. At 12p had 361mg/dL. Pt using 7 units of Lantus a night. Only sx pt had with elevated BS was anxiousness. Pt laso having foul odor to urine. Pt unable to express if having pain. Daughter wants orders to rule out UTI. PCP not in office. Agrees to [facility] referral for UA and BS check. .................. .................. .................. .................. .................. .................. .................. ............... CRC Nursing Assessment: Comments: CRC RN DID NOT NEED FURTHER INFOSDONNER .................. .................. .................. .................. .................. .................. .................. ............... Automation Tech Note From Nicole Barcenas: Community Automation Tech Sumanth Barcenas CCa1 dispatched to a [facility] for a 78 yof C/O UTI S/S x3 days. Upon arrival, the pt was sitting in her recliner, awake and alert, oriented to baseline w/ dementia per daughter/facility engineer . Her daughter stated that she noticed foul smelling urine 3 days prior, and that the pt had been C/O back pain as well. She also reported concern about the pt's blood sugar-it had been 300 to 400 for the past few days, even with lantus use. The pt changed from metformin to lantus about 1 month prior, and her daughter stated that her blood sugar had been getting steadily higher, and had been abnormally high lately. She stated she got the pt's blood sugar down to 250 the night prior with lantus. The pt denied any complaints when asked, which family reported was normal for her. She was not more confused or more unsteady on her feet than usual, and family denied any fevers. Skin warm pink and dry. Pupils equal and round. Airway open and patent, free of swelling or fluids. No JVD or tracheal deviation. Equal bilateral chest rise with nonlabored breathing. No abd rigidity or distention. Pelvis intact-pt ambulatory. CMS present and equal in all extremities. No DCAPBTLS unless otherwise noted. Urine dip acquired-result in [facility]. C consulted; pt was given 800 mg bactrim PO, w/ rx as well. Urine sample brought to [facility] laboratory for culture. Note was sent to pt's PCP about blood glucose mgmt, and family was reassured that high blood glucose was common w/ infection. Red flags discussed at length. .................. .................. .................. .................. .................. .................. .................. ............... Disposition: Fulfilled Mirna Swan MD [address] [facility],[address], [place], [phone], [employer] 08/29/2023 18:41:13 03/24/2024 text/html HPI: Patient with elevated BG in home 300 @ HS and 249 this morning before breakfast. Possible UTI no complaints but complains with wiping to daughter. Patient with outstanding labs from January requires home draw per Daughter and Daughter was told [facility] has eligibility to draw in home based on patient diagnosis. PCP labs ordered in January. Olga in [facility] reports labs to be done by [facility]. .................. .................. .................. .................. .................. .................. .................. ............... CRC Nurse Triage Notes (Marissa Singh): Comments: CRC RN DID NOT NEED further info An outreach call was made to Monica PANG, Left VM we are unable to do other labs Automation Tech POC Test Results from [facility] Urine Dipstick (13:09:18) Urine leukocytes: - POLINA Urine nitrites: - NIT Urine urobilinogen: - URO Urine protein: - PRO Urine pH: 5.0 pH Urine blood: - BLO Urine specific gravity: 1.010 SG Urine ketones: - KET Urine bilirubin: - HOLLI Urine glucose: 4+ GLU Automation Tech POC Test Results from Nba Dacosta [facility] Blood Glucose Measurement (13:13:09) Blood Glucose: 310 mg/dL .................. .................. .................. .................. .................. .................. .................. ............... Automation Tech Note From Nba Dacosta: Pt s daughter/CG reports elevated BG levels (mid 200 s) over the past 4 days. CG also notes polydipsia and polyuria. CG denies the pt having any dysuria, ABD discomfort, flank pain, hematuria, f/n/v/d. Pt uses lantus 22 u in the evening and has an rx for novolog with instructions to take 4 u prior to every meal. CG sts at last PCP appt in January, they instructed to only use novolog if necessary but CG is unable to describe what necessary would be. F/u PCP appt on 04/02. Pt is alert to baseline dementia, NAD. VSS. Afebrile. FBS. Non focal neuro exam. Normal gait. Lungs CTA. Benign ABD exam. No CVA tenderness. No LE edema. UA: pale yellow, clear, 4+ glucose, otherwise unremarkable. CG instructed to continue the lantus as prescribed and to begin checking BG levels prior to every meal, administer novolog 4 u if BG reading is >180. CG verbalized understanding. CG instructed to keep PCP f/u and discuss assisted plans. Red flags reviewed. .................. .................. .................. .................. .................. .................. .................. ............... Disposition: Merary Hoang MD [address] [facility],[address], [place], [phone], [place] [employer] 03/24/2024 15:09:23 OBGyn Episode No OBEpisode recorded.
--- OUTSIDE RECORDS SUMMARY | 2025-04-14 16:45 | XMS_ITS | Encounter Summary ---
Author Organization [employer] Address [address] [facility] [address] [place] [address] Care Team Providers Care Ultrasound Technol Name Role Phone Roxy Flood MD Primary Care Provider [phone]- [phone] Encounter Details Date Type Department Care Team (Latest Contact Info) Description 04/14/2025 Travel Social History Tobacco Use Types Packs/Day Years [...] Care Team (Late st Contact Info) Description 05/06/2025 11:30 AM EDT Office Visit [facility] [address] [place] [address] Roxy Flood MD [address] [place] [address] documented as of this encounter Goals Goal Patient Goal Type Associated Problems Recent Progress Patient-Stated? Author Blood Pressure < 150/90 Blood Pressure 131/86(2024 1:31 PM EDT) No Mickey Amaya Hemoglobin A1c < 8 Result Component 6.4( 8:51 AM EDT) No Mickey Amaya documented as of this encounter Visit Diagnoses Not on filedocumented in this encounter Additional Health Concerns Assessment Noted Time PHQ-9 Depression Total Score: 3 05/21/20 24 10:39 AM EDT documented as of this encounter Care Teams Ultrasound Technol Relationship Specialty Start Date End Date Roxy Flood MD [address] [place] [id number] PCP - General Family Medicine 03/21/23 Cj Harp NP [facility] Geriatric[facility] 10/07/24 Magi Raymond, RN [facility] ([place] [address] 11/04/24 documented as of this encounter
--- OUTSIDE RECORDS SUMMARY | 2025-04-14 16:45 | XMS_ITS | Patient Health Record ---
Author Organization [facility] Address [address] [place] [address] Care Team Providers Care Cinder Pit Crane Operator Name Role Phone Roxy Flood MD Primary Care Provider Galilea Nigel Marin Jr Unavailable Regino Cruz Unavailable Unavailable Reason For Referral No Information Medications Medication SIG (Take, Route, Fr equency, Duration) Notes Start Date End Date Status Vitamin D 1999units Active Omeprazole 20mg 09/24/2024 09/24/2024 Ac tive Aspir-81 Active metFORMIN HCl 1000mg Active Lisinopril 10mg Acti ve Problems Problem Type SNOMED Code ICD Code Onset Dates Problem Status W/U Status Risk Notes Problem Esophageal reflux (904548947) Esophageal reflux (530.81) Active confirmed Problem Constipation (22586166) Constipation (564.00) Active confirmed Problem Dysphagia (60695118) Dysphagia (787.20) Active confirmed Problem Screening for colon cancer (V76.51) Active confirmed Problem Long-term current use of aspirin (353511779334580 ) Aspirin long-term use (V58.66) Active confirmed Plan Of Treatment Pending Test Test Name Order Date XR BARIUM SWALLOW-ESOPHAGUS 06/13/2012 Future Test Test Name Order Date COLONOSCOPY 06/13/2012 Insurance Providers Payer Name Payer Address Payer Phone Subscriber Number Group Number Insured Name Patient Relationship to Insured Coverage Start Date Coverage End Date MEDICARE OF [place] [address] [place] PAZ [id number] [phone] [id number] CLAIRE MUÑOZ Self - patient is the insured MEDICAID OF [facility] [address] [place] [address] [id number] CLAIRE MUÑOZ Self - patient is the insured Medical (General) History Medical History History ICD Code colonoscopy 03-22-2007 colon polyps GERD diabetes mellitus depression osteopenia hypertension hyperlipidemia degenerative joint disease Surgical History Surgery Date(Month/Year) hernia repair x 2 breast biopsy and sentinel node biopsy right thyroid lobectomy
[2025-04-14 22:31] LABS: Bacterial Vaginosis PCR NEGATIVE (Negative); Candida Group PCR NOT DETECTED (Not Detect); Candida glab krusei PCR NOT DETECTED (Not Detect); Trichomonas vaginalis PCR NOT DETECTED (Not Detect)
== END 2025-04-14 16:29 | disposition home or self-care (01) ==
LOC: HO.HHCLNP 16:28
PROVIDERS: Visit Provider Internal Medicine Geriatric Medicine
DX: N76.2 Acute vulvitis (principal)
CPT/HCPCS: 81515